=== PATIENT | male | born 1990 ===

== ENCOUNTER 2017-07-10 17:00 | Inpatient (IN) | payer BC, OTHER ==
[~2017-07-10] VITALS: Ht 172.7 cm; Wt 127.0 kg
[2017-07-10] MEDS ORDERED: NICOTINE 14 MG/24HR PATCH TD PRN (22:15)
[2017-07-10] MEDS ORDERED: MAGNESIUM HYDROXIDE 30 ML LIQUID UDC PO PRN (22:15)
[2017-07-10] MEDS ORDERED: MIRALAX 17 GM POWD.PACK PO PRN (22:15)
[2017-07-10] MEDS ORDERED: NICOTINE POLACRILEX 4 MG GUM-PK OF TEN BC PRN (22:15)
[2017-07-10] MEDS ORDERED: MAG HYDROX/AL HYDROX/SIMETH 30 ML LIQUID UDC PO PRN (22:15)
[2017-07-10] MEDS ORDERED: IBUPROFEN 600 MG TABLET PO PRN (22:15)
[2017-07-10] MEDS ORDERED: DICYCLOMINE HCL 20 MG TABLET PO PRN (22:15)
[2017-07-10] MEDS ORDERED: ONDANSETRON ODT 4 MG TAB.RAPDIS SL PRN (22:15)
[2017-07-10] MEDS ORDERED: BUPRENORPHINE HCL 2 MG TAB.SUBL SL PRN (22:15)
[2017-07-10] MEDS ORDERED: LORAZEPAM 1 MG TABLET PO PRN ×2 (22:15)
[2017-07-10] MEDS ORDERED: ACETAMINOPHEN 325 MG TABLET PO PRN (22:15)
[2017-07-10] MEDS ORDERED: LORAZEPAM 2 MG/1 ML VIAL IM PRN (22:15)
[2017-07-10] MEDS ORDERED: LOPERAMIDE HCL 2 MG CAPSULE PO PRN ×2 (22:15)
[2017-07-10] MEDS ORDERED: CLONIDINE HCL 0.1 MG TABLET PO PRN (22:15)
[2017-07-10] MEDS ORDERED: diphenhydrAMINE 50 MG CAPSULE PO PRN (22:15)
[2017-07-10] MEDS ORDERED: BUPRENORPHINE HCL 2 MG TAB.SUBL SL ONE ×2 (22:30→23:12)
[2017-07-10 22:34] LABS: *AMPHETAMINE, URINE NEGATIVE (NEGATIVE); *BARBITURATE, URINE NEGATIVE (NEGATIVE); *CANNABINOID, URINE POSITIVE (NEGATIVE); *COCCAINE, URINE NEGATIVE (NEGATIVE); *OPIATE, URINE POSITIVE (NEGATIVE); *PHENCYCLIDINE SCREEN,URINE NEGATIVE (NEGATIVE)
[2017-07-10] MEDS ORDERED: PHENOBARBITAL 60 MG TABLET PO SCH (23:00)
[2017-07-10] MEDS ORDERED: PHENOBARBITAL 60 MG TABLET ONE (23:11)
[2017-07-10] MEDS ORDERED: FOLI1TAB16 PO (23:38)
[2017-07-10] MEDS ORDERED: CLON0.1T PO (23:38)
[2017-07-10] MEDS ORDERED: QUET100T PO (23:38)
[2017-07-10] MEDS ORDERED: GABA-534 PO (23:38)
[2017-07-10] MEDS ORDERED: ONDA4TAB10 PO (23:38)
[2017-07-10] MEDS ORDERED: METH-406 PO (23:38)
[2017-07-11 04:00] VITALS: BP 95/52
[2017-07-11 08:00] VITALS: BP 106/67
[2017-07-11] MEDS ORDERED: TUBERCULIN,PURIF.PROT.DERIV. 5 TU/0.1 ML TEST ID ONE (09:00)
[2017-07-11] MEDS: PHENOBARBITAL 60 MG TABLET PO SCH ×4 (09:04→20:31)
[2017-07-11] MEDS: BUPRENORPHINE HCL 2 MG TAB.SUBL SL SCH ×4 (09:04→20:31)
[2017-07-11] MEDS: MULTIVITAMINS,THERAPEUTIC TABLET PO SCH (09:04)
[2017-07-11] MEDS: GABAPENTIN 300 MG CAPSULE PO SCH ×2 (09:04→20:31)
[2017-07-11 12:00] VITALS: BP 126/68
[2017-07-11 13:06] LABS: BASOPHILS # (AUTO) 0.1 K/uL (0.0-8.0); EOSINOPHILS # (AUTO) 0.2 K/uL (0.0-0.7); EOSINOPHILS % (AUTO) 4.2 % (0.0-7.0); HEMATOCRIT 37.5 % (36.7-47.1); LYMPHOCYTES # (AUTO) 1.6 K/uL (20.0-40.0); LYMPHOCYTES % (AUTO) 29.3 % (20.5-51.5); MEAN CORPUSCULAR HEMOGLOBIN 29.7 uug (23.8-33.4); MEAN CORPUSCULAR HGB CONC 35 g/dL (32.5-36.3); MEAN CORPUSCULAR VOLUME 85.6 fL (73.0-96.2); MONOCYTES # (AUTO) 0.7 K/uL (2.0-10.0); MONOCYTES % (AUTO) 12.1 % (0.0-11.0); NEUTROPHILS % (AUTO) 53.4 % (38.5-71.5); PLATELET COUNT (AUTO) 155 K/uL (152-348); RED BLOOD CELL COUNT(AUTO) 4.38 MIL/uL (4.06-5.63); WHITE BLOOD COUNT (AUTO) 5.6 K/uL (3.6-10.2)
[2017-07-11 13:20] LABS: ALANINE AMINOTRANSFERASE 117 U/L (16-63); ALKALINE PHOSPHATASE 71 U/L (50-136); ASPARTATE AMINOTRANSFERASE 53 U/L (15-37); BILIRUBIN,TOTAL 0.2 mg/dL (0.2-1.0); CARBON DIOXIDE 29 mmol/L (21-32); CHLORIDE 103 mmol/L (98-107); GLUCOSE 121 mg/dL (74-106); POTASSIUM 3.8 mmol/L (3.5-5.1); TOTAL PROTEIN, SERUM 6.8 g/dL (6.4-8.2); UREA NITROGEN, BLOOD 11 mg/dL (7-18)
[2017-07-11 13:23] LABS: ETHANOL < 3 MG/DL (0-0)
[2017-07-11 16:00] VITALS: BP 134/96
[2017-07-11 20:00] VITALS: BP 132/89
[2017-07-11] MEDS: QUETIAPINE FUMARATE 100 MG TABLET PO SCH (20:31)
[2017-07-11] MEDS: METHOCARBAMOL 750 MG TABLET PO PRN (20:32)
[2017-07-12] VITALS: BP 121/69
[2017-07-12 04:00] VITALS: BP 120/67
[2017-07-12 06:06] LABS: HEPATITIS B SURFACE AG Negative (Negative)
[2017-07-12 08:16] VITALS: BP 119/68
[2017-07-12] MEDS: PHENOBARBITAL 60 MG TABLET PO SCH ×3 (08:47→20:20)
[2017-07-12] MEDS: METHOCARBAMOL 750 MG TABLET PO PRN ×2 (08:47→20:20)
[2017-07-12] MEDS: BUPRENORPHINE HCL 2 MG TAB.SUBL SL SCH ×3 (08:47→20:21)
[2017-07-12] MEDS: MULTIVITAMINS,THERAPEUTIC TABLET PO SCH (08:47)
[2017-07-12] MEDS: GABAPENTIN 300 MG CAPSULE PO SCH ×3 (08:47→20:20)
[2017-07-12] MEDS ORDERED: BUPRENORPHINE HCL 2 MG TAB.SUBL SL ONE (12:30)
[2017-07-12] MEDS ORDERED: CLONIDINE HCL 0.1 MG TABLET PO ONE (12:30)
[2017-07-12] MEDS ORDERED: PHENOBARBITAL 60 MG TABLET PO ONE (12:30)
[2017-07-12 13:08] VITALS: BP 124/82
[2017-07-12 16:50] VITALS: BP 148/79
[2017-07-12 20:00] VITALS: BP 127/77
[2017-07-12] MEDS: DICYCLOMINE HCL 20 MG TABLET PO SCH (20:20)
[2017-07-12] MEDS: CLONIDINE HCL 0.1 MG TABLET PO SCH (20:20)
[2017-07-12] MEDS: BACLOFEN 10 MG TABLET PO SCH (20:23)
[2017-07-12] MEDS: QUETIAPINE FUMARATE 100 MG TABLET PO SCH (21:48)
[2017-07-13] VITALS: BP 116/60
[2017-07-13 04:00] VITALS: BP 116/61
[2017-07-13 08:00] VITALS: BP 110/66
[2017-07-13] MEDS ORDERED: BUPRENORPHINE HCL 2 MG TAB.SUBL SL SCH (09:00)
[2017-07-13] MEDS: GABAPENTIN 300 MG CAPSULE PO SCH ×2 (09:26→14:20)
[2017-07-13] MEDS: MULTIVITAMINS,THERAPEUTIC TABLET PO SCH (09:26)
[2017-07-13] MEDS: DICYCLOMINE HCL 20 MG TABLET PO SCH ×2 (09:26→21:18)
[2017-07-13] MEDS: BACLOFEN 10 MG TABLET PO SCH ×3 (09:26→21:17)
[2017-07-13] MEDS: CLONIDINE HCL 0.1 MG TABLET PO SCH ×3 (09:27→21:16)
[2017-07-13] MEDS: PHENOBARBITAL 60 MG TABLET PO SCH ×3 (09:30→16:29)
[2017-07-13 12:00] VITALS: BP 125/62
[2017-07-13] MEDS ORDERED: LORAZEPAM 1 MG TABLET PO PRN ×2 (13:15)
[2017-07-13] MEDS: BUPRENORPHINE HCL 2 MG TAB.SUBL SL SCH ×2 (14:20→21:17)
[2017-07-13 16:00] VITALS: BP 121/77
[2017-07-13] MEDS ORDERED: METHYL SALICYLATE/MENTHOL CREAM 28 GM TUBE TOP PRN (18:30)
[2017-07-13 20:00] VITALS: BP 131/72
[2017-07-13] MEDS ORDERED: GABAPENTIN 300 MG CAPSULE PO SCH (21:00)
[2017-07-13] MEDS ORDERED: PHENOBARBITAL 60 MG TABLET PO SCH (21:00)
[2017-07-13] MEDS: QUETIAPINE FUMARATE 100 MG TABLET PO SCH (21:17)
[2017-07-13] MEDS: METHOCARBAMOL 750 MG TABLET PO PRN (23:07)
[2017-07-14] VITALS: BP 114/71
[2017-07-14 08:00] VITALS: BP 107/72
[2017-07-14] MEDS: BUPRENORPHINE HCL 2 MG TAB.SUBL SL SCH ×3 (09:38→21:49)
[2017-07-14] MEDS: DICYCLOMINE HCL 20 MG TABLET PO SCH ×2 (09:38→21:49)
[2017-07-14] MEDS: BACLOFEN 10 MG TABLET PO SCH (09:38)
[2017-07-14] MEDS: GABAPENTIN 300 MG CAPSULE PO SCH ×3 (09:38→21:49)
[2017-07-14] MEDS: PHENOBARBITAL 60 MG TABLET PO SCH ×3 (09:38→21:49)
[2017-07-14] MEDS: MULTIVITAMINS,THERAPEUTIC TABLET PO SCH (09:38)
[2017-07-14] MEDS: CLONIDINE HCL 0.1 MG TABLET PO SCH ×2 (09:39→14:34)
[2017-07-14 12:00] VITALS: BP 116/89
[2017-07-14] MEDS: BACLOFEN 20 MG TABLET PO SCH ×2 (14:32→21:49)
[2017-07-14 16:00] VITALS: BP 108/61
[2017-07-14 20:00] VITALS: BP 141/83
[2017-07-14] MEDS ORDERED: CLONIDINE HCL 0.2 MG TABLET PO SCH (21:00)
[2017-07-14] MEDS ORDERED: DICYCLOMINE HCL 20 MG TABLET PO SCH (21:00)
[2017-07-14] MEDS: QUETIAPINE FUMARATE 100 MG TABLET PO SCH (21:51)
[2017-07-14] MEDS ORDERED: HYDROXYZINE PAMOATE 25 MG CAPSULE PO ONE (23:45)
[2017-07-14] MEDS: METHOCARBAMOL 750 MG TABLET PO PRN (23:53)
[2017-07-15] VITALS: BP 118/57
[2017-07-15 08:00] VITALS: BP 122/62
[2017-07-15] MEDS: MULTIVITAMINS,THERAPEUTIC TABLET PO SCH (09:19)
[2017-07-15] MEDS: DICYCLOMINE HCL 20 MG TABLET PO SCH ×2 (09:20→16:38)
[2017-07-15] MEDS: PHENOBARBITAL 60 MG TABLET PO SCH (09:20)
[2017-07-15] MEDS: GABAPENTIN 300 MG CAPSULE PO SCH ×2 (09:20→16:37)
[2017-07-15] MEDS: BACLOFEN 20 MG TABLET PO SCH ×2 (09:20→16:37)
[2017-07-15] MEDS: CLONIDINE HCL 0.1 MG TABLET PO SCH ×2 (09:21→16:37)
[2017-07-15] MEDS: BUPRENORPHINE HCL 2 MG TAB.SUBL SL SCH (09:21)
[2017-07-15 12:00] VITALS: BP 112/74
[2017-07-15] MEDS ORDERED: PHENOBARBITAL 60 MG TABLET PO ONE (13:00)
[2017-07-15] MEDS ORDERED: BUPRENORPHINE HCL 2 MG TAB.SUBL SL ONE ×2 (13:00→23:46)
[2017-07-15] MEDS: METHOCARBAMOL 750 MG TABLET PO PRN (13:54)
[2017-07-15 16:30] VITALS: BP 118/72
[2017-07-15] MEDS ORDERED: HYDROXYZINE PAMOATE 25 MG CAPSULE PO PRN (18:30)
[2017-07-15 20:10] VITALS: BP 126/71
[2017-07-15] MEDS ORDERED: PHENOBARBITAL 60 MG TABLET ONE (23:46)
[2017-07-16 00:16] VITALS: BP 148/98
[2017-07-16] MEDS: QUETIAPINE FUMARATE 100 MG TABLET PO SCH ×2 (00:22→21:47)
[2017-07-16] MEDS: GABAPENTIN 300 MG CAPSULE PO SCH ×4 (00:22→21:48)
[2017-07-16] MEDS: PHENOBARBITAL 60 MG TABLET PO SCH (00:22)
[2017-07-16] MEDS: BACLOFEN 20 MG TABLET PO SCH ×4 (00:22→21:47)
[2017-07-16] MEDS: DICYCLOMINE HCL 20 MG TABLET PO SCH ×4 (00:23→21:47)
[2017-07-16] MEDS: BUPRENORPHINE HCL 2 MG TAB.SUBL SL SCH (00:23)
[2017-07-16 04:04] VITALS: BP 140/91
[2017-07-16 08:00] VITALS: BP 104/64
[2017-07-16] MEDS ORDERED: PHENOBARBITAL 60 MG TABLET PO SCH (09:00)
[2017-07-16] MEDS ORDERED: BUPRENORPHINE HCL 2 MG TAB.SUBL SL SCH (09:00)
[2017-07-16] MEDS: MULTIVITAMINS,THERAPEUTIC TABLET PO SCH (09:45)
[2017-07-16] MEDS: CLONIDINE HCL 0.1 MG TABLET PO SCH ×2 (09:46→14:19)
[2017-07-16 12:00] VITALS: BP 137/65
[2017-07-16] MEDS: BENZOCAINE/MENTH/CETYLPYRD LOZENGE MM PRN (14:22)
[2017-07-16 16:00] VITALS: BP 127/68
[2017-07-16 20:00] VITALS: BP 133/85
[2017-07-16] MEDS ORDERED: DICY20TA28 PO (23:46)
[2017-07-16] MEDS ORDERED: IBUP-1955 PO (23:46)
[2017-07-16] MEDS ORDERED: CLON0.1T14 PO (23:46)
[2017-07-16] MEDS ORDERED: BACL20TA PO (23:46)
[2017-07-16] MEDS ORDERED: GABA-534 PO ×2 (23:46)
[2017-07-16] MEDS ORDERED: HYDR-3895 PO (23:46)
[2017-07-17] MEDS: BACLOFEN 20 MG TABLET PO SCH (08:19)
[2017-07-17] MEDS: GABAPENTIN 300 MG CAPSULE PO SCH (08:19)
[2017-07-17] MEDS: BENZOCAINE/MENTH/CETYLPYRD LOZENGE MM PRN (08:19)
[2017-07-17] MEDS: CLONIDINE HCL 0.1 MG TABLET PO SCH (08:19)
[2017-07-17] MEDS: DICYCLOMINE HCL 20 MG TABLET PO SCH (08:19)
[2017-07-17] MEDS: MULTIVITAMINS,THERAPEUTIC TABLET PO SCH (08:19)
[2017-07-17 08:48] VITALS: BP 125/78
== END 2017-07-17 09:28 | disposition other institution (70) | DRG 895 ==
LOC: SRC 20:59
PROVIDERS: ADMIT Internal Medicine; ATTEND Internal Medicine
PROC: HZ2ZZZZ Detoxification Services for Substance Abuse Treatment (ICD-10-PCS; principal; 2017-07-10)
PROC: HZ31ZZZ Individual Counseling for Substance Abuse Treatment, Behavioral (ICD-10-PCS; 2017-07-13)
PROC: HZ41ZZZ Group Counseling for Substance Abuse Treatment, Behavioral (ICD-10-PCS; 2017-07-14)
DX: F13.232 Sedative, hypnotic or anxiolytic dependence with withdrawal with perceptual disturbance (principal); I15.9 Secondary hypertension, unspecified; F12.90 Cannabis use, unspecified, uncomplicated; F17.210 Nicotine dependence, cigarettes, uncomplicated; Z81.1 Family history of alcohol abuse and dependence; Z81.8 Family history of other mental and behavioral disorders; M79.2 Neuralgia and neuritis, unspecified; T22.3 Burn of third degree of shoulder and upper limb, except wrist and hand; V49.9XXS Car occupant (driver) (passenger) injured in unspecified traffic accident, sequela; Z79.899 Other long term (current) drug therapy; Z59.1 Inadequate housing; G47.00 Insomnia, unspecified; F43.10 Post-traumatic stress disorder, unspecified; Z91.89 Other specified personal risk factors, not elsewhere classified; R73.9 Hyperglycemia, unspecified; J02.9 Acute pharyngitis, unspecified; R74.0 Nonspecific elevation of levels of transaminase and lactic acid dehydrogenase [LDH]
CPT/HCPCS: 36415; 70030-TC; 80307; 80346; 80349; 80361; 83735; 85025; 86592; 86705; 86803; 87340; 87806; A4663; G0480; J8499; Q0162

== ENCOUNTER 2017-08-12 13:03 | Inpatient (IN) | payer BC, OTHER ==
[~2017-08-12] VITALS: Ht 172.7 cm; Wt 120.2 kg
[~2017-08-12 13:03] MED LIST: BACL20TA PO; CLON0.1T PO; CLON0.1T14 PO; DICY20TA28 PO; GABA-534 PO; HYDR-3895 PO; IBUP-1955 PO; METH-406 PO; ONDA4TAB10 PO; QUET100T PO
--- NOTE | 2017-08-13 12:05 | NUR ---
Pre-admission Note: Client is seen in intake at this time. Alert and oriented x 4. Verbally responsive. Appears anxious. Redirection and reassurance provided. Educated patient on the unit's policies and procedures. Verbalized good understanding. Denies any allergies. Last seizure was on Aug 2015. Client states that he is voluntarily here to safely detox off of opiates and BZO. Will continue with the admission process when patient arrives in the unit. BP - 181/61 Pulse - 101 Temp. - 98.2 RR - 19 PL - 7/10. O2 sat at RA - 98%
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
[2017-08-13 12:19] VITALS: BP 131/81
[2017-08-13] MEDS ORDERED: MAGNESIUM HYDROXIDE 30 ML LIQUID UDC PO PRN (12:30)
[2017-08-13] MEDS ORDERED: ACETAMINOPHEN 325 MG TABLET PO PRN (12:30)
[2017-08-13] MEDS ORDERED: DOCUSATE SODIUM 250 MG CAPSULE PO PRN (12:30)
[2017-08-13] MEDS ORDERED: MAG HYDROX/AL HYDROX/SIMETH 30 ML LIQUID UDC PO PRN (12:30)
[2017-08-13] MEDS ORDERED: MIRALAX 17 GM POWD.PACK PO PRN (12:30)
[2017-08-13] MEDS ORDERED: LORAZEPAM 1 MG TABLET PO PRN ×2 (12:30)
[2017-08-13] MEDS ORDERED: LOPERAMIDE HCL 2 MG CAPSULE PO PRN ×2 (12:30)
[2017-08-13] MEDS ORDERED: ONDANSETRON ODT 4 MG TAB.RAPDIS SL PRN (12:30)
[2017-08-13] MEDS ORDERED: DICYCLOMINE HCL 20 MG TABLET PO PRN (12:30)
[2017-08-13] MEDS ORDERED: diphenhydrAMINE 50 MG CAPSULE PO PRN (12:30)
[2017-08-13] MEDS ORDERED: ONDANSETRON 4 MG/2 ML VIAL IM PRN (12:30)
[2017-08-13] MEDS ORDERED: BUPRENORPHINE HCL 2 MG TAB.SUBL SL PRN (12:30)
[2017-08-13] MEDS ORDERED: LORAZEPAM 2 MG/1 ML VIAL IM PRN (12:30)
[2017-08-13 13:03] LABS: *AMPHETAMINE, URINE NEGATIVE (NEGATIVE); *BARBITURATE, URINE NEGATIVE (NEGATIVE); *CANNABINOID, URINE POSITIVE (NEGATIVE); *COCCAINE, URINE NEGATIVE (NEGATIVE); *OPIATE, URINE POSITIVE (NEGATIVE); *PHENCYCLIDINE SCREEN,URINE NEGATIVE (NEGATIVE)
[2017-08-13] MEDS: METHOCARBAMOL 750 MG TABLET PO PRN (13:15)
[2017-08-13] MEDS: CLONIDINE HCL 0.1 MG TABLET PO PRN (13:15)
[2017-08-13] MEDS: LORAZEPAM 1 MG TABLET PO SCH ×3 (13:15→20:38)
--- NOTE | 2017-08-13 13:15 | NUR ---
Taper initiated/Clonidine/Robaxin/Bentyl PO given: COWS 14, patient noted with increased anxiety, chills, hot flashes, diaphoretic, myalgia and abdominal cramps. BP 181/91. Denies any chest pain or discomfort. Medicated patient with Clonidine, Robaxin and Bentyl as ordered. Will monitor for effectiveness
[2017-08-13] MEDS: BUPRENORPHINE HCL 2 MG TAB.SUBL SL SCH ×3 (13:16→20:40)
[2017-08-13 14:15] VITALS: BP 145/81
--- NOTE | 2017-08-13 14:15 | NUR ---
Re-assessment: Clonidine/Robaxin and Bentyl Per patient, PRN Clonidine, Robaxin and Bentyl was effective in reducing patient's blood pressure, BP 145/81, less myalgia noted, PL 4/10 and less abdominal cramps noted.
[2017-08-13] MEDS: GABAPENTIN 400 MG CAPSULE PO SCH ×2 (14:17→20:39)
[2017-08-13 15:22] LABS: BASOPHILS % (AUTO) 0.4 % (0.0-2.0); EOSINOPHILS # (AUTO) 0.1 K/uL (0.0-0.7); EOSINOPHILS % (AUTO) 0.9 % (0.0-7.0); HEMATOCRIT 38.4 % (36.7-47.1); HEMOGLOBIN 13.2 g/dL (12.5-16.3); LYMPHOCYTES # (AUTO) 1.4 K/uL (20.0-40.0); LYMPHOCYTES % (AUTO) 17.3 % (20.5-51.5); MEAN CORPUSCULAR HEMOGLOBIN 29.5 uug (23.8-33.4); MEAN CORPUSCULAR HGB CONC 34 g/dL (32.5-36.3); MONOCYTES # (AUTO) 0.4 K/uL (2.0-10.0); MONOCYTES % (AUTO) 5.2 % (0.0-11.0); NEUTROPHILS % (AUTO) 76.2 % (38.5-71.5); PLATELET COUNT (AUTO) 218 K/uL (152-348); RED BLOOD CELL COUNT(AUTO) 4.47 MIL/uL (4.06-5.63); WHITE BLOOD COUNT (AUTO) 7.9 K/uL (3.6-10.2)
[2017-08-13 15:32] LABS: ETHANOL < 3 MG/DL (0-0)
[2017-08-13 15:33] LABS: ALANINE AMINOTRANSFERASE 60 U/L (16-63); ALKALINE PHOSPHATASE 77 U/L (50-136); ASPARTATE AMINOTRANSFERASE 28 U/L (15-37); BILIRUBIN,TOTAL 0.3 mg/dL (0.2-1.0); CARBON DIOXIDE 27 mmol/L (21-32); CHLORIDE 105 mmol/L (98-107); CREATININE 1.1 mg/dL (0.6-1.3); GLUCOSE 152 mg/dL (74-106); MAGNESIUM 2.1 mg/dL (1.8-2.4); POTASSIUM 4.1 mmol/L (3.5-5.1); TOTAL PROTEIN, SERUM 7.7 g/dL (6.4-8.2); UREA NITROGEN, BLOOD 15 mg/dL (7-18)
[2017-08-13 16:00] VITALS: BP 121/83
--- NOTE | 2017-08-13 18:50 | NUR ---
End of Shift Notes: Patient initiated his 5-day Ativan and 5-day Subutex taper as ordered today at 1300. No adverse reactions noted. VS monitored closely. No significant abnormalities noted. Withdrawal symptoms were closely monitored. Initial COWS 14/CIWA 7. Medicated patient with Clonidine 0.1mg PO, Robaxin 750 mg PO and Bentyl 20 mg PO as ordered at 1315 with help after 1 hour. Per patient, Ativan and Subutex has been effective in reducing patient's withdrawal symptoms. Denies S/I or H/i. No AV hallucinations noted. Last COWS 9/CIWA 5. Unable to participate in group and activities due to his withdrawal symptoms. All needs met and attended. Will continue to monitor closely.
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
[2017-08-13 20:35] VITALS: BP 124/73
[2017-08-13] MEDS: QUETIAPINE FUMARATE 25 MG TABLET PO PRN (21:33)
--- NOTE | 2017-08-13 21:35 | NUR ---
PRN Medication Administration Patient is verbalizing inability of falling asleep. PRN Seroquel administered as per order. Will continue to monitor.
--- NOTE | 2017-08-13 22:30 | NUR ---
PRN Medication Reassessment Patient is noted in bed sleeping. Breathing even and non labored. Patient was given PRN Seroquel with medication noted to be effective. Patient continues to sleep well with no complications noted. No restlessness or discomfort noted. No facial grimacing noted. Will continue to monitor.
[2017-08-14 00:20] VITALS: BP 106/64
[2017-08-14 04:45] VITALS: BP 154/103
[2017-08-14] MEDS: METHOCARBAMOL 750 MG TABLET PO PRN (05:15)
[2017-08-14] MEDS: CLONIDINE HCL 0.1 MG TABLET PO PRN (05:15)
--- NOTE | 2017-08-14 05:16 | NUR ---
PRN Medication Administration Patient noted verbalizing increased pain due to lower back muscle spasms, increased anxiety, restlessness and inability of falling asleep. PRN Robaxin and Clonidine administered as per order. Will continue to monitor.
[2017-08-14 06:06] LABS: HEPATITIS B SURFACE AG Negative (Negative)
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
[2017-08-14 08:00] VITALS: BP 105/60
--- NOTE | 2017-08-14 08:00 | NUR ---
Start of Shift Notes: Received patient in his room. Alert and verbally responsive. Oriented x 4. Patient states he feels anxious and "feeling like crap." Respirations even and unlabored. No SOB noted. Abdomen soft and non-distended. BS (+) in all 4 quadrants. No complains of N/V/D or constipation noted. Bladder non-distended. Voids independently. Ambulatory ad beth with steady gait. Patient is a 26 year old male admitted for opiate and BZO dependence who was placed on a 5-day Ativan and 5-day Subutex taper as ordered. No adverse reactions noted. Prior to admission, patient was using 4-6 mg of Xanax, 2-3 grams of IV Heroin, 1 gram of Marijuana and intermittent methamphetamine. Has past medical hx of PTSD, anxiety, left shoulder skin graft, and seizure r/t withdrawals. NKA. FULL CODE. Regular diet. On fall and seizure precautions. Educated patient on the current plan of care for the day and his medication regimen. Encouraged oral fluid intake and encouraged group participation to learn new skills to prevent relapse. Will continue to monitor closely.
[2017-08-14] MEDS: IBUPROFEN 600 MG TABLET PO PRN (08:52)
[2017-08-14] MEDS: GABAPENTIN 400 MG CAPSULE PO SCH ×3 (08:52→20:31)
--- NOTE | 2017-08-14 08:52 | NUR ---
Motrin 600 mg PO given: Patient complained of 5/10 headache. Medicated patient with Motrin 600 mg PO as ordered. Will monitor for effectiveness.
[2017-08-14] MEDS ORDERED: TUBERCULIN,PURIF.PROT.DERIV. 5 TU/0.1 ML TEST ID ONE (09:00)
[2017-08-14] MEDS ORDERED: LORAZEPAM 1 MG TABLET PO SCH (09:00)
[2017-08-14] MEDS ORDERED: BUPRENORPHINE HCL 2 MG TAB.SUBL SL SCH (09:00)
--- NOTE | 2017-08-14 09:52 | NUR ---
Re-assessment: Motrin Per patient, PRN Motrin was effective in reducing headache. PL 2
--- NOTE | 2017-08-14 10:34 | NUR ---
TB test not administered: Patient refused TB test at this time. Educated patient on the risk and benefits but patient still refused. Notified MD. Will continue to monitor.
[2017-08-14 12:00] VITALS: BP 123/78
--- NOTE | 2017-08-14 12:28 | NUR ---
THerapist prompted client to attend group, client agreed to attend.
--- NOTE | 2017-08-14 12:35 | NUR ---
Therapist prompted client to attend group. Client agreed to attend.
[2017-08-14] MEDS: BUPRENORPHINE HCL 2 MG TAB.SUBL SL SCH ×3 (14:01→20:31)
[2017-08-14] MEDS: LORAZEPAM 1 MG TABLET PO SCH ×3 (14:01→20:31)
[2017-08-14 16:00] VITALS: BP 138/94
--- NOTE | 2017-08-14 18:59 | NUR ---
End of Shift Notes: Patient's taper was modified by MD Lewis today. He is tolerating the taper well. No adverse reactions noted. VS monitored closely. No significant abnormalities noted. Withdrawal symptoms were closely monitored. Initial COWS 11/CIWA 10, patient presented with anxiety/agitation, myalgia, stomach cramps, chills, hot flashes, sweating, facial flushing, and tremors. Medicated patient with Ibuprofen 600 mg PO as ordered for headache with help after 1 hour. Last COWS /CIWA 7. Denies S/I or H/I. No AV hallucinations noted. Unable to participate in group and activities due to his withdrawal symptoms. All needs met and attended. Will continue to monitor closely.
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
[2017-08-14 20:27] VITALS: BP 151/94
[2017-08-14] MEDS: QUETIAPINE FUMARATE 25 MG TABLET PO PRN (20:32)
--- NOTE | 2017-08-14 20:35 | NUR ---
PRN Medication Administration Patient verbalizing inability of falling asleep. PRN Seroquel administered. Will continue to monitor.
--- NOTE | 2017-08-14 21:30 | NUR ---
PRN Medication Reassessment Patient is noted in bed sleeping. Breathing even and non labored. No signs of pain or discomfort noted. Patient was given PRN Seroquel with medication noted to be effective. Patient continues to sleep with no interruptions noted. Will continue to monitor.
[2017-08-15 00:10] VITALS: BP 126/78
[2017-08-15 04:10] VITALS: BP 122/73
--- NOTE | 2017-08-15 07:06 | NUR ---
End of Shift Patient is in bed sleeping. Breathing even and non labored. No facial grimacing or discomfort noted. Patient is a 26 year old male admitted today 08/13/17 for Opiate and Benzo Dependence and continues on a modified Ativan and Subutex taper. Patient received a PRN Seroquel for sleep with medication noted to be effective. Patient noted to sleep a total of 6 hours. Last noted COWS 9 and CIWA 12. Patient is compliant with medications and is tolerating plan of care well. All needs attended to promptly. Will endorse to continue plan of care as ordered.
--- NOTE | 2017-08-15 07:10 | NUR ---
Start Of Shift Patient Received. Patient is a 26 year old male admitted today 08/13/17 for Opiate and Benzo Dependence. Pt is currently receiving a modified Ativan and Subutex taper, Pt reports No known allergies, is Full Code and on a Regular Diet, placed on fall and seizure precautions. Past medical history PTSD, Anxiety, Left shoulder Skin graft, History of seizures due to withdrawal (08/2015). Per endorsement, Patient was given PRN Seroquel which was noted to be effective. Last noted COWS 12 and CIWA 9. Pt encouraged to drink more fluids to help facilitate with the detox process. Pt slept a total of 6 hours last night, all safety precautions in place call light within reach bed in lowest locked position will continue to monitor and provide care.
[2017-08-15 08:00] VITALS: BP 122/75
[2017-08-15] MEDS: LORAZEPAM 1 MG TABLET PO SCH ×3 (08:59→21:33)
[2017-08-15] MEDS: BUPRENORPHINE HCL 2 MG TAB.SUBL SL SCH ×3 (08:59→21:33)
[2017-08-15] MEDS ORDERED: LORAZEPAM 1 MG TABLET PO SCH (09:00)
[2017-08-15] MEDS ORDERED: BUPRENORPHINE HCL 2 MG TAB.SUBL SL SCH ×2 (09:00→15:00)
[2017-08-15] MEDS: GABAPENTIN 400 MG CAPSULE PO SCH ×3 (09:01→21:33)
[2017-08-15 12:00] VITALS: BP 126/80
[2017-08-15] MEDS ORDERED: BUPRENORPHINE HCL 2 MG TAB.SUBL SL ONE (12:45)
[2017-08-15] MEDS ORDERED: LORAZEPAM 1 MG TABLET PO ONE (12:45)
[2017-08-15 16:00] VITALS: BP 120/78
--- NOTE | 2017-08-15 18:52 | NUR ---
End Of Shift Report given to warehouse shift supervisor nurse. Patient is a 26 year old male admitted today 08/13/17 for Opiate and Benzo Dependence. Pt is currently receiving a modified Ativan and Subutex taper, Pt reports No known allergies, is Full Code and on a Regular Diet, placed on fall and seizure precautions. Pts VS monitored closely q 4 hours. Withdrawal symptoms were closely monitored. Initial COWS 9 CIWA 12. Patient encouraged adequate PO fluid intake as tolerated. Patient presented with tremors and anxiety during the day. Last COWS 7 CIWA 6. Per patient, Subutex and Ativan have been helping him with his withdrawal symptoms. Pt ate all of his meals. Pt received onetime orders of Ativan 2mg and Subutex 4mg No PRN medications were given, Pt is in stable condition. Pt encouraged to drink more fluids to help facilitate with detox process. Patient encouraged to attend group therapies/sessions to learn new coping skills to recent relapse, patient denies SI/HI. Participated in group and therapy sessions. All needs met and attended
--- NOTE | 2017-08-15 19:05 | NUR ---
Start of shift note Received report from day shift nurse. Pt is a 26 yo male, A+Ox4, presenting to [facility] for Benzo/Opiate/Meth dependence. Pt has NKA, is on Full code status, and on Regular diet. Pt is on Fall and Seizure precautions. Pt has HX of PTSD, Anxiety, Left shoulder skin graft, and Seizure. Pt is on 5 day Subutex and 5 day Ativan tapers, tolerated well. No s/s of distress noted at this time. Respirations even and unlabored. Will continue to monitor.
[2017-08-15 20:20] VITALS: BP 146/78
[2017-08-15] MEDS: QUETIAPINE FUMARATE 25 MG TABLET PO PRN (21:38)
--- NOTE | 2017-08-15 21:38 | NUR ---
PRN Seroquel Pt c/o inability to sleep and requested for PRN Seroquel. Medication given and tolerated well. Will reassess within 1 HR. Will continue to monitor.
--- NOTE | 2017-08-15 22:35 | NUR ---
PRN Seroquel Reassessment Medication effective. Pt is resting well in bed. No s/s of distress noted at this time. Respirations even and unlabored. Will continue to monitor.
--- NOTE | 2017-08-16 00:30 | NUR ---
Tachycardia/MD Communication: Patient noted with tachycardia, HR ranging 125-138 bpm for the last four hours. MD made aware with NNO at this time. Will continue to monitor.
[2017-08-16 00:41] VITALS: BP 126/82
[2017-08-16 04:51] VITALS: BP 109/56
--- NOTE | 2017-08-16 07:00 | NUR ---
End of shift note Pt is a 26 yo male, A+Ox4, presenting to [facility] for Benzo/Opiate/Meth dependence. Pt has NKA, is on Full code status, and on Regular diet. Pt is on Fall and Seizure precautions. Pt has HX of PTSD, Anxiety, Left shoulder skin graft, and Seizure. Pt is on 5 day Subutex and 5 day Ativan tapers, tolerated well. Pt was given PRN Seroquel @2138. Pt slept for a total of 5 HRS. Last COWS: 4 and Last CIWA: 3 @0400. No s/s of distress noted at this time. Respirations even and unlabored. Will endorse to day shift nurse.
[2017-08-16 08:00] VITALS: BP 120/61
[2017-08-16] MEDS: GABAPENTIN 400 MG CAPSULE PO SCH ×3 (08:38→21:17)
[2017-08-16] MEDS ORDERED: BUPRENORPHINE HCL 2 MG TAB.SUBL SL SCH ×2 (09:00)
[2017-08-16] MEDS ORDERED: LORAZEPAM 1 MG TABLET PO SCH ×2 (09:00)
[2017-08-16 12:00] VITALS: BP 135/83
[2017-08-16] MEDS: BUPRENORPHINE HCL 2 MG TAB.SUBL SL SCH ×3 (12:13→21:18)
[2017-08-16] MEDS: PHENOBARBITAL 60 MG TABLET PO SCH ×3 (12:13→21:18)
[2017-08-16 12:45] LABS: BASOPHILS % (AUTO) 0.4 % (0.0-2.0); EOSINOPHILS # (AUTO) 0.2 K/uL (0.0-0.7); EOSINOPHILS % (AUTO) 1.6 % (0.0-7.0); HEMATOCRIT 40.1 % (36.7-47.1); HEMOGLOBIN 13.8 g/dL (12.5-16.3); LYMPHOCYTES # (AUTO) 2.3 K/uL (20.0-40.0); LYMPHOCYTES % (AUTO) 20.9 % (20.5-51.5); MEAN CORPUSCULAR HEMOGLOBIN 29.6 uug (23.8-33.4); MEAN CORPUSCULAR HGB CONC 34 g/dL (32.5-36.3); MEAN CORPUSCULAR VOLUME 86.1 fL (73.0-96.2); MONOCYTES # (AUTO) 0.9 K/uL (2.0-10.0); MONOCYTES % (AUTO) 8.1 % (0.0-11.0); NEUTROPHILS # (AUTO) 7.6 K/uL (1.8-8.9); PLATELET COUNT (AUTO) 215 K/uL (152-348); RED BLOOD CELL COUNT(AUTO) 4.66 MIL/uL (4.06-5.63); WHITE BLOOD COUNT (AUTO) 10.9 K/uL (3.6-10.2)
[2017-08-16 12:53] LABS: MAGNESIUM 1.9 mg/dL (1.8-2.4); POTASSIUM 4.1 mmol/L (3.5-5.1)
[2017-08-16] MEDS ORDERED: OSELTAMIVIR PHOSPHATE 75 MG CAPSULE PO ONE (13:00)
--- NOTE | 2017-08-16 13:00 | NUR ---
New orders: Patient with orders for labs, strep throat culture, blood culture, and CXR due to URI symptoms.
[2017-08-16 16:00] VITALS: BP 126/81
--- NOTE | 2017-08-16 18:00 | NUR ---
New orders: Patient was placed on droplet precaution at this time due to possible influenza. Patient education provided.
--- NOTE | 2017-08-16 18:56 | NUR ---
End of Shift Notes: Patient continues to be on a modified 5-day Subutex and Ativan taper switched to Phenobarbital taper. He is tolerating the taper well. No adverse reactions noted. VS monitored closely. No significant abnormalities noted. Withdrawal symptoms were closely monitored. Initial COWS 5/CIWA 4, patient presented with anxiety, fine tremors, mild sweats. Last COWS 7/CIWA 6. Denies S/I or H/I. No AV hallucinations noted. Unable to participate in group and activities due to his withdrawal symptoms. Patient noted with URI symptoms. MD aware. Labs/CXR/Strep swab and influenza swab done as ordered. Results received. On Tamiflu and droplet precaution as ordered. All needs met and attended. Will continue to monitor closely.
--- NOTE | 2017-08-16 19:15 | NUR ---
START OF SHIFT NOTE : Pt. is 26 years old , admitted on 08/13/2017 for safely detox off of BZO and opiates. Pt. placed on a 5-day Subutex and modified Phenobarbital taper as ordered. No adverse reactions noted. NKA. FULL CODE. Regular diet. On fall and seizure precautions. He is alert and verbally responsive. Oriented x 4. Patient complains of increased level of anxiety , mild body ache. Respirations even and unlabored. No SOB noted. Abdomen soft and non-distended. BS (+) in all 4 quadrants. No complains of N/V/D or constipation noted. Bladder non-distended. Voids independently. Ambulatory ad beth with steady gait. Safety measures in place, call light within reach, side rails up x2, bed locked and in low position. Will continue to monitor.
[2017-08-16 20:00] VITALS: BP 139/87
[2017-08-16] MEDS: OSELTAMIVIR PHOSPHATE 75 MG CAPSULE PO SCH (21:17)
--- NOTE | 2017-08-16 23:00 | NUR ---
PRN SEROQUEL Pt. complains of sleeplessness. PRN SEROQUEL given as ordered. Safety measures in place : bed on lowest position with side rails x2 up for safety, call light within reach. Will continue to monitor closely and offer help.
[2017-08-16] MEDS: QUETIAPINE FUMARATE 25 MG TABLET PO PRN (23:21)
--- NOTE | 2017-08-17 | NUR ---
RE-ASSESSMENT SEROQUEL Pt. is sleeping, RR=16 unlabored and even. Safety measures in place : bed on lowest position with side rails x2 up for safety, call light within reach. Will continue to monitor closely and offer help.
--- NOTE | 2017-08-17 06:37 | NUR ---
END OF SHIFT NOTE : Pt. is 26 years old , admitted on 08/13/2017 for safely detox off of BZO and opiates. Pt. placed on a 5-day Subutex and modified Phenobarbital taper as ordered. No adverse reactions noted. NKA. FULL CODE. Regular diet. On fall and seizure precautions. He is alert and verbally responsive. Pt remains compliant with the treatment plan. PRN SEROQUEL given during my shift. V/S remain WNL. RR=16, even and unlabored, lungs clear upon auscultation, abdomen soft and non- distended. Pt denies nausea, vomiting and diarrhea. CIWA and COWS taken when pt. was alert during the night, LAST CIWA=4 ,COWS=4 at 0400 , INTAKE= 2100 ml, voided x3 , slept 4 hours. Safety measures in place : bed on lowest position with side rails x2 up for safety, call light within reach. Will continue to monitor closely and offer help.
[2017-08-17 08:00] VITALS: BP 115/66
--- NOTE | 2017-08-17 08:10 | NUR ---
START OF SHIFT NOTE Received report from night nurse, 26 year old male admitted for Opiate and Benzo Dependence. Patient cont with modified Ativan and Subutex taper tolerating well. Per endorsement pt received PRN Seroquel effective per night nurse, last CIWA-4, COWS,4, slept for 4 hours. Patient received awake, alert and oriented x4. Patient was educated regarding plan of care for the day and medication regimen. Safety measures in place. call light with in reach. Will continue to monitor.
[2017-08-17] MEDS ORDERED: BUPRENORPHINE HCL 2 MG TAB.SUBL SL SCH (09:00)
[2017-08-17] MEDS: OSELTAMIVIR PHOSPHATE 75 MG CAPSULE PO SCH ×2 (09:00→21:10)
[2017-08-17] MEDS ORDERED: LORAZEPAM 1 MG TABLET PO SCH ×2 (09:00)
--- NOTE | 2017-08-17 09:00 | NUR ---
REFUSED MED Patient refused his scheduled Tamiflu offered x3 risk and benefits explained, pt still refused. notified.
[2017-08-17] MEDS: GABAPENTIN 400 MG CAPSULE PO SCH ×3 (09:40→21:10)
[2017-08-17] MEDS: PHENOBARBITAL 60 MG TABLET PO SCH ×3 (09:40→21:10)
[2017-08-17] MEDS: BUPRENORPHINE HCL 2 MG TAB.SUBL SL SCH ×3 (09:41→21:10)
[2017-08-17 12:00] VITALS: BP 114/68
[2017-08-17] MEDS ORDERED: LORAZEPAM 1 MG TABLET PO ONE (12:15)
[2017-08-17] MEDS ORDERED: BUPRENORPHINE HCL 2 MG TAB.SUBL SL ONE (12:15)
--- NOTE | 2017-08-17 12:46 | NUR ---
ONE TIME SUBUTEX AND ATIVAN ORDER Patient appears anxious, agitated, walking back and forth in his room and pt repotes mild nausea, chills, sweats, light headed. Patient was seen by MD with new one time order of Ativan 2mg PO and Subutex 4mg SL, CIWA/COWS score noted 8,
--- NOTE | 2017-08-17 13:06 | NUR ---
SUBUTEX REASSESSMENT COWS score noted-4, patient states one time Subutex was effective in reducing patient 's withdrawal symptoms.
[2017-08-17] MEDS ORDERED: NICOTINE 14 MG/24HR PATCH TD PRN (13:15)
[2017-08-17] MEDS: NICOTINE POLACRILEX 4 MG GUM-PK OF TEN BC PRN ×3 (13:26→21:40)
--- NOTE | 2017-08-17 13:26 | NUR ---
PRN NICOTINE GUM Patient reports nicotine craving PRN Nicotine gum 4mg given as ordered. Will cont to monitor and reassess.
--- NOTE | 2017-08-17 13:46 | NUR ---
ATIVAN REASSESSMENT COWS score noted-4, patient states one time Subutex was effective in reducing patient 's withdrawal symptoms Addendum: 08/17/17 at 1903 by LYDIA GUADALUPE LVN ZECHARIAH score noted 4, patient states one time Ativan was effective in reducing his withdrawal symptoms.
--- NOTE | 2017-08-17 14:26 | NUR ---
NICOTINE GUM REASSESSMENT Patient states Nicotine gum was effective in alleviating nicotine craving.
[2017-08-17 16:00] VITALS: BP 122/81
[2017-08-17] MEDS: HYDROXYZINE PAMOATE 25 MG CAPSULE PO PRN (16:01)
--- NOTE | 2017-08-17 16:02 | NUR ---
PRN NICOTINE GUM/VISTARIL Patient reports nicotine craving and anxiety, agitation PRN Nicotine gum 4mg/Vistaril 25mg Po given as ordered. Will cont to monitor and reassess.
--- NOTE | 2017-08-17 17:02 | NUR ---
NICOTINE GUM/VISTARIL REASSESSMENT Patient states Nicotine gum was effective in alleviating nicotine craving and Vistaril was effective in reducing his anxiety and agitation. .
--- NOTE | 2017-08-17 19:03 | NUR ---
END OF SHIFT NOTE Patient cont with Ativan taper tolerated well. Patient received PRN Toradol IM noted to be effective. Patient did not attend any groups and activities, stayed in his room most of the day. Educated pt to attend groups and activities to learn new coping skills with good verbal understanding. Patient seen by psychiatrist with new order of Celexa and Wellbutrin medication given as ordered tolerated well. Vital signs WNL. Last CIWA score was 5 @1600. Safety measures in place. Patient endorsed to night nurse in stable condition. Addendum: 08/17/17 at 1925 by LYDIA GUADALUPE LVN ERROR IN CHARTING WRONG PT.
--- NOTE | 2017-08-17 19:15 | NUR ---
START OF SHIFT NOTE : Pt. is 26 years old , admitted on 08/13/2017 for safely detox off of BZO and opiates. Pt. placed on a 5-day Subutex and modified Phenobarbital taper as ordered. No adverse reactions noted. NKA. FULL CODE. Regular diet. On fall and seizure precautions. He is alert and verbally responsive. Pt. is on Room Restriction, Isolation precautions, is watching TV, complains of increased level of anxiety and sleeplessness. Safety measures in place : bed on lowest position with side rails x2 up for safety, call light within reach. Will continue to monitor closely and offer help.
--- NOTE | 2017-08-17 19:25 | NUR ---
END OF SHIFT NOTE Patient cont on modify Phenobarbital/5 days Subutex taper tolerating well. Patient received PRN medications for anxiety and one time dose noted to be effective. Patient cont with isolation. patient complaint with treatment and medications Vital signs WNL. Last CIWA score noted 3 and COWS score noted 3 at 1600. All safety measures in place. Patient endorse to night nurse in stable condition.
[2017-08-17 20:00] VITALS: BP 102/65
--- NOTE | 2017-08-17 21:00 | NUR ---
PRN NICOTINE GUM Patient reports nicotine craving PRN Nicotine gum 4mg given as ordered. Will cont to monitor and reassess.
[2017-08-17] MEDS: QUETIAPINE FUMARATE 25 MG TABLET PO PRN (21:10)
--- NOTE | 2017-08-17 22:00 | NUR ---
NICOTINE GUM REASSESSMENT Patient states Nicotine gum was effective in alleviating nicotine craving.
--- NOTE | 2017-08-18 06:56 | NUR ---
END OF SHIFT NOTE : Pt. is 26 years old , admitted on 08/13/2017 for safely detox off of BZO and opiates. Pt. placed on a 5-day Subutex and modified Phenobarbital taper as ordered. No adverse reactions noted. NKA. FULL CODE. Regular diet. On fall and seizure precautions. He is alert and verbally responsive. Pt remains compliant with the treatment plan. PRN SEROQUEL given during my shift. V/S remain WNL. RR=16, even and unlabored, lungs clear upon auscultation, abdomen soft and non- distended. Pt denies nausea, vomiting and diarrhea. CIWA and COWS taken when pt. was alert during the night, LAST CIWA=3 ,COWS=3 at 0400 , INTAKE= 1296 ml, voided x2 , slept 6 hours. Safety measures in place : bed on lowest position with side rails x2 up for safety, call light within reach. Will continue to monitor closely and offer help.
--- NOTE | 2017-08-18 07:45 | NUR ---
START OF SHIFT RECEIVED PT A/O X4, RESPIRATIONS EVEN AND UNLABORED. PT HAS A FLAT AFFECT. PT REMAINS ON ISOLATION. PT REPORTS HAVING MILD NAUSEA, HEADACHE, SWEATING AND ANXIETY. MILD TREMORS FELT AND PT SEEMS AGITATED. ENCOURAGED PT TO CONSUME MORE FLUIDS TO PROMOTE DETOX PROCESS. SIDE RAILS UP X2, BED IN LOWEST POSITION. CALL LIGHT WITHIN REACH. SZ AND FALL PRECAUTIONS TAKEN. WILL CONTINUE TO MONITOR AND PROVIDE SUPPORT.
--- NOTE | 2017-08-18 07:45 | NUR ---
START OF SHIFT RECEIVED PT A/O X4, RESPIRATIONS EVEN AND UNLABORED. PT HAS A FLAT AFFECT, HE STATES HE IS WONDERING HOW L Addendum: 08/18/17 at 0930 by MATY SETH RN WRONG PT DATA
[2017-08-18 08:00] VITALS: BP 132/68
[2017-08-18] MEDS ORDERED: LORAZEPAM 1 MG TABLET PO SCH (09:00)
[2017-08-18] MEDS: NICOTINE POLACRILEX 4 MG GUM-PK OF TEN BC PRN ×3 (09:03→21:32)
[2017-08-18] MEDS: GABAPENTIN 400 MG CAPSULE PO SCH ×3 (09:03→21:33)
--- NOTE | 2017-08-18 09:03 | NUR ---
PRN PT C/O NICOTINE CRAVINGS AND NICOTINE GUM WAS GIVEN AT 0903. WILL CONTINUE TO MONITOR.
[2017-08-18] MEDS: BUPRENORPHINE HCL 2 MG TAB.SUBL SL SCH ×2 (09:04→21:33)
[2017-08-18] MEDS: PHENOBARBITAL 60 MG TABLET PO SCH ×3 (09:04→21:32)
--- NOTE | 2017-08-18 10:00 | NUR ---
REASSESSMENT PT VERBALIZED THE NICOTINE GUM WAS EFFECTIVE IN ALLEVIATING IN NICOTINE CRAVINGS.
[2017-08-18] MEDS: OSELTAMIVIR PHOSPHATE 75 MG CAPSULE PO SCH ×2 (10:04→21:33)
--- NOTE | 2017-08-18 10:45 | NUR ---
RESPIRATORY NASAL SWABS RECEIVED FROM LAB AND SPECIMEN SENT TO LAB FOR RESPIRATORY VIRUS PANEL.
[2017-08-18] MEDS: IBUPROFEN 600 MG TABLET PO PRN ×2 (10:56→18:05)
[2017-08-18] MEDS: METHOCARBAMOL 750 MG TABLET PO PRN (10:59)
[2017-08-18] MEDS: HYDROXYZINE PAMOATE 25 MG CAPSULE PO PRN (10:59)
--- NOTE | 2017-08-18 11:03 | NUR ---
PRN PT C/O HEADACHE, GENERALIZED BODY ACHES, ANXIETY AND NICOTINE CRAVINGS. ROBAXIN 750 MG PO PRN, VISARIL 25 MG PO PRN, MOTRIN 600 MG PO PRN, AND NICOTINE GUM WAS GIVEN. WILL CONTINUE TO MONITOR.
[2017-08-18 12:00] VITALS: BP 145/89
--- NOTE | 2017-08-18 12:03 | NUR ---
REASSESSMENT PT REPORTED MEDICATION WAS EFFECTIVE FOR HEADACHE, BODY ACHES AND ANXIETY BUT PT APPEARS TO BE AGITATED. PT STATES, "I FEEL TRAPPED INSIDE THIS ROOM, I NEED FRESH AIR. I FEEL CLAUSTROPHOBIC." PT HAVE BEEN RE-EDUCATED ON THE RATIONALE AND PURPOSE OF DROPLET ISOLATION. REINFORCEMENT NEEDED. PT STATED NICOTINE GUM WAS EFFECTIVE. WILL CONTINUE TO MONITOR AND PROVIDE SUPPORT.
[2017-08-18] MEDS ORDERED: OSELTAMIVIR PHOSPHATE 75 MG CAPSULE PO SCH (13:00)
[2017-08-18 16:00] VITALS: BP 142/85
--- NOTE | 2017-08-18 17:05 | NUR ---
CONSULT FOR DR. RUSHING IS PLACED AND AWAITING FOR FURTHER ASSESSMENT ON CONTINUANCE OF DROPLET PRECAUTIONS.
[2017-08-18] MEDS: CLONIDINE HCL 0.1 MG TABLET PO PRN (17:56)
--- NOTE | 2017-08-18 18:05 | NUR ---
PRN PT APPEARED TO BE ANGRY AND AGITATED. HE REQUESTED TO HAVE MEDICATION FOR ANXIETY AND HEADACHE. CLONIDINE 0.1 MG PO PRN AND MOTRIN 600 MG PO PRN WAS GIVEN. WILL CONTINUE TO MONITOR.
--- NOTE | 2017-08-18 19:05 | NUR ---
REASSESSMENT PT APPEARS TO BE LESS AGITATED UPON REASSESSMENT. WILL CONTINUE TO MONITOR.
--- NOTE | 2017-08-18 19:15 | NUR ---
START OF SHIFT NOTE : Pt. is 26 years old , admitted on 08/13/2017 for safely detox off of BZO and opiates. Pt. placed on a 5-day Subutex and modified Phenobarbital taper as ordered. No adverse reactions noted. NKA. FULL CODE. Regular diet. On fall and seizure precautions. He is alert and verbally responsive. Pt. is on Room Restriction, Isolation precautions, is watching TV, complains of mild headache, increased level of anxiety and sleeplessness. Safety measures in place : bed on lowest position with side rails x2 up for safety, call light within reach. Will continue to monitor closely and offer help.
--- NOTE | 2017-08-18 19:28 | NUR ---
END OF SHIFT PT IS A/O X4, RESPIRATIONS EVEN AND UNLABORED. PT APPEARS TO BE ANGRY, AGITATED AND RESTLESS; STATES HE IS VERY UPSET AND LOSING PATIENCE BEING ON ISOLATION. EDUCATED PT ON THE RATIONALE TO DROPLET ISOLATION PRECAUTION. REINFORCEMENT NEEDED. CONSULT WITH DR. RUSHING HAS BEEN PLACED AND AWAITING FOR FURTHER ASSESSMENT. PT REPORTS HAVING MILD NAUSEA, HEADACHE, SWEATING AND ANXIETY. PT REPORTS NO FLU-LIKE SYMPTOMS. MILD TREMORS ARE FELT. LAST COWS 7 AND CIWA 6. ENCOURAGED PT TO CONSUME MORE FLUIDS TO PROMOTE DETOX PROCESS. SIDE RAILS UP X2, BED IN LOWEST POSITION. CALL LIGHT WITHIN REACH. SZ AND FALL PRECAUTIONS TAKEN. WILL GIVE ALL ENDORSEMENT AND PERTINENT DATA TO REPA[employer]ER [employer] NURSE.
[2017-08-18 20:00] VITALS: BP 132/88
--- NOTE | 2017-08-18 21:00 | NUR ---
PRN NICOTINE GUM Patient reports nicotine craving . PRN Nicotine gum 4mg given as ordered. Will cont to monitor and reassess.
[2017-08-18] MEDS: QUETIAPINE FUMARATE 25 MG TABLET PO PRN (21:33)
[2017-08-18] MEDS: CLONIDINE HCL 0.1 MG TABLET PO SCH (21:34)
--- NOTE | 2017-08-18 21:50 | NUR ---
NICOTINE GUM REASSESSMENT Patient states Nicotine gum was effective in alleviating nicotine craving.
--- NOTE | 2017-08-19 06:52 | NUR ---
END OF SHIFT NOTE : Pt. is 26 years old , admitted on 08/13/2017 for safely detox off of BZO and opiates. Pt. placed on a 5-day Subutex and modified Phenobarbital taper as ordered. No adverse reactions noted. NKA. FULL CODE. Regular diet. On fall and seizure precautions. He is alert and verbally responsive. Pt remains compliant with the treatment plan. PRN SEROQUEL, Nicotine Gum given during my shift. V/S remain WNL. RR=16, even and unlabored, lungs clear upon auscultation, abdomen soft and non- distended. Pt denies nausea, vomiting and diarrhea. CIWA and COWS taken when pt. was alert during the night, LAST CIWA=5 ,COWS=5 at 0400 , INTAKE= 1712 ml, voided x2 , slept 7 hours. Safety measures in place : bed on lowest position with side rails x2 up for safety, call light within reach. Will continue to monitor closely and offer help.
[2017-08-19 08:00] VITALS: BP 90/60
--- NOTE | 2017-08-19 08:20 | NUR ---
START OF SHIFT: RECEIVED PT A/O X 4. HE PRESENTS WITH BLUNTED AFFECT AND DEPRESSED MOOD. HE STATES HE IS AGITATED THAT HE IS RESTRICTED TO ROOM FOR DROPLET PRECAUTIONS. COWS 4 CIWA 7. HE C/O H/A 2/10 ON PAIN SCALE. HE REPORTS BODY ACHES, CHILLS,RESTLESSNESS AND ANXIETY. PRN MOTRIN GIVEN FOR H/A AND BODY ACHES. WILL MONITOR EFFECTIVENESS OF PRN MEDS. ENCOURAGED IONCREASED FLUIDS AND REST. WILL CONTINUE TO MONITOR AND OFFER SUPPORT.
[2017-08-19] MEDS ORDERED: BUPRENORPHINE HCL 2 MG TAB.SUBL SL SCH (09:00)
[2017-08-19] MEDS: OSELTAMIVIR PHOSPHATE 75 MG CAPSULE PO SCH ×2 (09:00→20:34)
[2017-08-19] MEDS ORDERED: PHENOBARBITAL 60 MG TABLET PO SCH (09:00)
[2017-08-19] MEDS: CLONIDINE HCL 0.1 MG TABLET PO SCH ×2 (09:00→20:34)
[2017-08-19] MEDS ORDERED: LORAZEPAM 1 MG TABLET PO SCH (09:00)
[2017-08-19] MEDS: GABAPENTIN 400 MG CAPSULE PO SCH ×3 (09:30→20:33)
[2017-08-19] MEDS: IBUPROFEN 600 MG TABLET PO PRN ×2 (09:54→18:20)
--- NOTE | 2017-08-19 09:55 | NUR ---
PRN 600mg Ibuprofen given for head ache/stuffiness, pain level 2/10
--- NOTE | 2017-08-19 10:50 | NUR ---
PRN IBUPROFEN EFFECTIVE, PAIN LESS AT 1/10
[2017-08-19] MEDS ORDERED: GUAIFENESIN LA 600 MG TABLET.SA PO PRN (11:30)
[2017-08-19 12:00] VITALS: BP 132/81
[2017-08-19] MEDS ORDERED: OSELTAMIVIR PHOSPHATE 75 MG CAPSULE PO ONE (12:00)
[2017-08-19] MEDS: FLUTICASONE PROP NASAL SPRAY 16 GM BOTTLE NS SCH (12:11)
--- NOTE | 2017-08-19 13:05 | NUR ---
PRN reassess Mucinex somewhat effective, patient claims head still feels slightly congested
--- NOTE | 2017-08-19 13:45 | NUR ---
PRN 600mg Mucinex given for nasal congestion, will monitor Addendum: 08/19/17 at 1349 by BRIANA DHILLON RN Mucinex 600mg given to Patient at 1208
[2017-08-19] MEDS ORDERED: HYDR-3895 PO (14:25)
[2017-08-19] MEDS ORDERED: GUAI600T53 PO (14:25)
[2017-08-19] MEDS ORDERED: DICY20TA28 PO (14:25)
[2017-08-19] MEDS ORDERED: OSEL75CA PO (14:25)
[2017-08-19] MEDS ORDERED: IBUP-1955 PO (14:25)
[2017-08-19] MEDS ORDERED: METH-406 PO (14:25)
[2017-08-19] MEDS ORDERED: CLON0.1T14 PO (14:25)
[2017-08-19] MEDS ORDERED: GABA-536 PO (14:25)
[2017-08-19 16:00] VITALS: BP 141/79
[2017-08-19] MEDS ORDERED: HYDROXYZINE PAMOATE 25 MG CAPSULE PO PRN (18:00)
[2017-08-19] MEDS ORDERED: CLONIDINE HCL 0.2 MG TABLET PO ONE (18:00)
--- NOTE | 2017-08-19 18:25 | NUR ---
PRN VISTERAL 50MG AND IBUPROFEN 600MG GIVEN PRN MEDS, WILL CONTINUE TO MONITOR
--- NOTE | 2017-08-19 18:29 | NUR ---
END OF SHIFT PT HAS COMPLETED SUBUTEX/ PHENO TAPER. LAST COWS 6 CIWA 4. PT HAS BEEN ON CONTACT AND DROPLET ISOLATION WHICH IS STILL CURRENTLY IN PLACE DUE TO POSSIBLE INFLUENZA.ID CAME AND ASSESSED PT THIS AM. PT BECAME ANXIOUS, IRRITATED AND AGITATED ABOUT NOT BEING ABLE TO INTERACT WITH PEERS AND SMOKE CIGARETTES. HE THREATENED TO LEAVE AMA. MD INTERVENED AND PT AGREED TO STAY AND IS SCHEDULED FOR DISCHARGE IN AM TOMORROW. PRN MOTRIN GIVEN X 2 FOR H/A AND EFFECTIVE. PRN CLONIDINE AND PRN VISTARIL GIVEN FOR ANXIETY AND EFFECTIVE. WILL PASS SHIFT REPORT TO [facility] NIGHT NURSE.
--- NOTE | 2017-08-19 18:29 | NUR ---
START OF SHIFT NOTE: Patient is a 26 year old female presented in [facility] for Benzodiazepines, Opioid, Methamphetamines, and Marijuana dependence. Patient completed 5 Day Subutex and Modified Phenobarbital Taper with tolerated well without ASE. Patient remains compliant with medications and diet regime. Patient reports NKA. Patient is on Regular diet, Full Code, Fall and Seizures Precautions. Patient is on Droplet Precautions r/t influenza. 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 Patient is alert and oriented x4 with stable gait. COWS 5, CIWA 5. Patient c/o anxiety, agitation, nervousness, nasal stuff, restlessness, sweating, body aches and tremors that can be felt. VSWNL. Respirations are unlabored and even. Lungs Sounds are clear throughout. Patient denies cough, SOB and chest pain. Heart rate is regular. Abdomen is soft and non-tender. Bowel Sounds are active in all four quadrants. Skin is intact, warm and dry to touch. Encouraged fluids as tolerated. Patient scheduled for discharging tomorrow, on 08/20/2017. Safety measures in place: Call light within reach, bed is locked and lowest positions, padded bed rails up x2. Patient endorsed by day shift nurse. Report received. Will continue to monitor closely. Addendum: 08/20/17 at 0105 by BLANCA MEADOWS RN Patient is a 26 year old male presented in [facility] for Benzodiazepines, Opioid, Methamphetamines, and Marijuana dependence.
[2017-08-19 20:00] VITALS: BP 115/70
[2017-08-19] MEDS: QUETIAPINE FUMARATE 25 MG TABLET PO PRN (21:06)
--- NOTE | 2017-08-19 21:06 | NUR ---
PRN SEROQUEL 150 MG 6 TAB PO ADMINISTRATION Patient c/o insomnia. PRN Seroquel 150 mg 6 tab. PO administrated with full glass of water as ordered. Patient tolerated well. All needs met. Safety measures on place. Call light within reach, bed in lowest position and locked, padded rails up bilaterally rails up bilaterally. Will continue to monitor closely.
--- NOTE | 2017-08-19 22:06 | NUR ---
RE-ASSESSMENT Patient is sleeping. Respirations even and unlabored. RR 16. PRN Seroquel 150 mg 6 tab. PO administrated for insomnia @2105 was effective. All needs met. Safety measures on place. Call light within reach, bed in lowest position and locked, bed rails up bilaterally. Will continue to monitor closely.
--- NOTE | 2017-08-20 | NUR ---
VS REFUSED AND COWS/CIWA DEFERRED Patient refused to be woken up for 0000 VS. COWS/CIWA deferred d/t patient sleeping to assess while patient is awake. Safety measures on place by hospital policy: Call light within reach, bed in lowest position and locked, side rails up x2. Will continue to monitor closely.
[2017-08-20 04:00] VITALS: BP 115/60
--- NOTE | 2017-08-20 06:47 | NUR ---
END OF SHIFT NOTE: Patient is a 26 year old male presented in [facility] for Benzodiazepines, Opioid, Methamphetamines, and Marijuana dependence. Patient completed 5 Day Subutex and Modified Phenobarbital Taper with tolerated well without ASE. Patient remains compliant with medications and diet regime. Patient reports NKA. Patient is on Regular diet, Full Code, Fall and Seizures Precautions. Patient is on Droplet Precautions r/t influenza. 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 Last COWS 4, CIWA 4 @0400. Patient presented during manager shift with anxiety, agitation, nervousness, nasal stuff, restlessness, tremors that can be felt, and barely sweating. Patient denies SI/HI. Last VS @0400: T: 98.1, HR:78, RR: 17, RA O2SAT 95%, BP: 115/60, pain level: "0/10". Respiration unlabored and even. Patient denies cough, SOB and chest pain. Skin is intact, warm and dry to touch. Encouraged fluids intake as tolerated. PRN Seroquel 150 mg 6 tab PO administrated for insomnia @2106 was effective. Patient slept 8 hours, intake 296 ml, voided x1. Patient scheduled for discharging today, 08/20/2017. All needs met. Safety measures on place. Call light within reach, bed in lowest position and locked, bed rails up bilaterally. Patient endorsed to day shift nurse. Report given.
--- NOTE | 2017-08-20 07:30 | NUR ---
START OF SHIFT Rcvd endorsement form ongoing nurse, client is in room, he is a/o x 4, he presents with anxious mood, flat affect,. He stated "I'm ready to continue with my treatment." Client is schedule for discharge this am to [facility]. R eye with clear sclera. Client is a 26 year old male admitted for benzodiazepine and opioid withdrawal. He completed 5 day Ativan and 5 day Subutex taper, tolerated well. Last CIWA / 4 @ 0400. PRN Seroquel 150mg PO for inability to sleep, he slept 8 hrs. NKA. FULL CODE. Regular diet. On droplet isolation. On seizure precautions. . Will continue to monitor closely.
[2017-08-20 08:34] VITALS: BP 116/72
[2017-08-20] MEDS: FLUTICASONE PROP NASAL SPRAY 16 GM BOTTLE NS SCH (09:18)
[2017-08-20 09:19] VITALS: BP 116/72
[2017-08-20] MEDS: CLONIDINE HCL 0.1 MG TABLET PO SCH (09:19)
[2017-08-20] MEDS: OSELTAMIVIR PHOSPHATE 75 MG CAPSULE PO SCH (09:19)
[2017-08-20] MEDS: GABAPENTIN 400 MG CAPSULE PO SCH (09:19)
--- NOTE | 2017-08-20 09:50 | NUR ---
Discharge note Client was admitted for benzodiazepine and opiate withdrawal. Client has a recent CIWA 2/COWS 2. Client VS are WNL.Client LBM was 08/20/17. Client denies any SI/HI. Client verbalized his understanding of the discharge instructions. Client has no complaints at this time. Client discharge instructions and all belongings returned to client. All needs addressed at this time. Client ID band removed, client ambulated off of unit, client left facility via [facility] for [facility].
== END 2017-08-20 09:50 | disposition other institution (70) | DRG 895 ==
LOC: SRC 08-13 11:33
PROVIDERS: ADMIT Internal Medicine; ATTEND Internal Medicine
PROC: HZ2ZZZZ Detoxification Services for Substance Abuse Treatment (ICD-10-PCS; principal; 2017-08-13)
PROC: HZ41ZZZ Group Counseling for Substance Abuse Treatment, Behavioral (ICD-10-PCS; 2017-08-14)
PROC: HZ31ZZZ Individual Counseling for Substance Abuse Treatment, Behavioral (ICD-10-PCS; 2017-08-16)
DX: F11.23 Opioid dependence with withdrawal (principal); I15.9 Secondary hypertension, unspecified; G62.9 Polyneuropathy, unspecified; F17.210 Nicotine dependence, cigarettes, uncomplicated; J11.1 Influenza due to unidentified influenza virus with other respiratory manifestations; T22.3 Burn of third degree of shoulder and upper limb, except wrist and hand; V99.XXXS Unspecified transport accident, sequela; Z81.1 Family history of alcohol abuse and dependence; F13.230 Sedative, hypnotic or anxiolytic dependence with withdrawal, uncomplicated; F43.10 Post-traumatic stress disorder, unspecified; G47.00 Insomnia, unspecified; Z59.1 Inadequate housing; Z81.8 Family history of other mental and behavioral disorders; S00.11XA Contusion of right eyelid and periocular area, initial encounter; Y04.0XXA Assault by unarmed brawl or fight, initial encounter; Y92.89 Other specified places as the place of occurrence of the external cause; F15.10 Other stimulant abuse, uncomplicated
CPT/HCPCS: 36415; 70030-TC; 71010; 80307; 80346; 80349; 80361; 83735; 85025; 86403; 86580; 86592; 86705; 86803; 87040; 87070; 87340; 87400; 87806; A4663; G0480; J3535; J8499

== ENCOUNTER 2017-09-10 10:45 | Inpatient (IN) | payer BC, OTHER ==
[~2017-09-10] VITALS: Ht 172.7 cm; Wt 122.5 kg
[~2017-09-10 10:45] MED LIST changes: -CLON0.1T PO; -GABA-534 PO; +GABA-536 PO; +GUAI600T53 PO; -ONDA4TAB10 PO; +OSEL75CA PO
[2017-09-10] MEDS ORDERED: ONDANSETRON 4 MG/2 ML VIAL IM PRN (22:30)
[2017-09-10] MEDS ORDERED: IBUPROFEN 600 MG TABLET PO PRN (22:30)
[2017-09-10] MEDS ORDERED: diphenhydrAMINE 50 MG CAPSULE PO PRN (22:30)
[2017-09-10] MEDS ORDERED: LORAZEPAM 1 MG TABLET PO PRN ×2 (22:30)
[2017-09-10] MEDS ORDERED: MAG HYDROX/AL HYDROX/SIMETH 30 ML LIQUID UDC PO PRN (22:30)
[2017-09-10] MEDS ORDERED: MAGNESIUM HYDROXIDE 30 ML LIQUID UDC PO PRN (22:30)
[2017-09-10] MEDS ORDERED: ACETAMINOPHEN 325 MG TABLET PO PRN (22:30)
[2017-09-10] MEDS ORDERED: DICYCLOMINE HCL 20 MG TABLET PO PRN (22:30)
[2017-09-10] MEDS ORDERED: MIRALAX 17 GM POWD.PACK PO PRN (22:30)
[2017-09-10] MEDS ORDERED: LOPERAMIDE HCL 2 MG CAPSULE PO PRN ×2 (22:30)
[2017-09-10] MEDS ORDERED: LORAZEPAM 2 MG/1 ML VIAL IM PRN (22:30)
[2017-09-10 23:24] LABS: *AMPHETAMINE, URINE POSITIVE (NEGATIVE); *BARBITURATE, URINE NEGATIVE (NEGATIVE); *CANNABINOID, URINE POSITIVE (NEGATIVE); *COCCAINE, URINE NEGATIVE (NEGATIVE); *OPIATE, URINE POSITIVE (NEGATIVE); *PHENCYCLIDINE SCREEN,URINE NEGATIVE (NEGATIVE)
[2017-09-10 23:30] LABS: BASOPHILS # (AUTO) 0.1 K/uL (0.0-8.0); BASOPHILS % (AUTO) 0.6 % (0.0-2.0); EOSINOPHILS % (AUTO) 0.3 % (0.0-7.0); HEMATOCRIT 37.5 % (36.7-47.1); HEMOGLOBIN 13.1 g/dL (12.5-16.3); LYMPHOCYTES # (AUTO) 1.7 K/uL (20.0-40.0); LYMPHOCYTES % (AUTO) 17.2 % (20.5-51.5); MEAN CORPUSCULAR HEMOGLOBIN 30.1 uug (23.8-33.4); MEAN CORPUSCULAR HGB CONC 35 g/dL (32.5-36.3); MEAN CORPUSCULAR VOLUME 85.7 fL (73.0-96.2); MONOCYTES % (AUTO) 10.1 % (0.0-11.0); NEUTROPHILS # (AUTO) 7.2 K/uL (1.8-8.9); NEUTROPHILS % (AUTO) 71.8 % (38.5-71.5); PLATELET COUNT (AUTO) 198 K/uL (152-348); RED BLOOD CELL COUNT(AUTO) 4.37 MIL/uL (4.06-5.63); WHITE BLOOD COUNT (AUTO) 10.1 K/uL (3.6-10.2)
[2017-09-10] MEDS ORDERED: LORAZEPAM 1 MG TABLET PO ONE (23:30)
[2017-09-10] MEDS ORDERED: GABA600T2 PO (23:32)
[2017-09-10] MEDS ORDERED: QUET150T PO (23:32)
[2017-09-10] MEDS: METHOCARBAMOL 750 MG TABLET PO PRN (23:34)
[2017-09-10] MEDS: CLONIDINE HCL 0.1 MG TABLET PO PRN (23:34)
[2017-09-10 23:40] LABS: ALANINE AMINOTRANSFERASE 72 U/L (16-63); ALKALINE PHOSPHATASE 81 U/L (50-136); ASPARTATE AMINOTRANSFERASE 22 U/L (15-37); BILIRUBIN,TOTAL 0.4 mg/dL (0.2-1.0); CARBON DIOXIDE 23 mmol/L (21-32); CHLORIDE 105 mmol/L (98-107); CREATININE 1.2 mg/dL (0.6-1.3); GLUCOSE 121 mg/dL (74-106); POTASSIUM 3.3 mmol/L (3.5-5.1); TOTAL PROTEIN, SERUM 7.5 g/dL (6.4-8.2); UREA NITROGEN, BLOOD 19 mg/dL (7-18)
[2017-09-10] MEDS ORDERED: METHOCARBAMOL 750 MG TABLET ONE (23:49)
[2017-09-10] MEDS ORDERED: LORAZEPAM 1 MG TABLET ONE (23:49)
[2017-09-10] MEDS ORDERED: CLONIDINE HCL 0.1 MG TABLET ONE (23:49)
[2017-09-10] MEDS ORDERED: DICYCLOMINE HCL 20 MG TABLET ONE (23:50)
[2017-09-10 23:54] LABS: ETHANOL < 3 MG/DL (0-0)
[2017-09-11] VITALS: BP 127/82
[2017-09-11] MEDS ORDERED: POTASSIUM CHLORIDE 20 MEQ TAB.PRT.SR PO ONE (00:45)
[2017-09-11] MEDS: BUPRENORPHINE HCL 2 MG TAB.SUBL SL PRN ×3 (00:46→22:17)
[2017-09-11] MEDS ORDERED: BUPRENORPHINE HCL 2 MG TAB.SUBL SL ONE (00:57)
[2017-09-11 08:00] VITALS: BP 112/67
[2017-09-11] MEDS ORDERED: GABAPENTIN 300 MG CAPSULE PO SCH (09:00)
[2017-09-11] MEDS ORDERED: TUBERCULIN,PURIF.PROT.DERIV. 5 TU/0.1 ML TEST ID ONE (09:00)
[2017-09-11] MEDS: LORAZEPAM 1 MG TABLET PO SCH ×3 (12:02→20:07)
[2017-09-11] MEDS: BUPRENORPHINE HCL 2 MG TAB.SUBL SL SCH ×3 (12:02→20:09)
[2017-09-11 12:15] VITALS: BP 120/62
[2017-09-11] MEDS ORDERED: NICOTINE POLACRILEX 4 MG GUM-PK OF TEN BC PRN (13:45)
[2017-09-11] MEDS ORDERED: NICOTINE 14 MG/24HR PATCH TD PRN (13:45)
[2017-09-11] MEDS: METHOCARBAMOL 750 MG TABLET PO PRN ×2 (14:05→22:07)
[2017-09-11] MEDS: GABAPENTIN 400 MG CAPSULE PO SCH ×2 (14:05→20:07)
[2017-09-11 16:00] VITALS: BP 116/62
[2017-09-11 20:00] VITALS: BP 116/75
[2017-09-11] MEDS ORDERED: QUETIAPINE FUMARATE 100 MG TABLET PO SCH (21:00)
[2017-09-11 22:00] VITALS: BP 132/101
[2017-09-11] MEDS: CLONIDINE HCL 0.1 MG TABLET PO PRN (22:06)
[2017-09-11] MEDS ORDERED: HYDROXYZINE PAMOATE 25 MG CAPSULE ONE (22:17)
[2017-09-12] VITALS: BP 120/76
[2017-09-12 04:00] VITALS: BP 110/72
[2017-09-12 08:00] VITALS: BP 121/68
[2017-09-12] MEDS: GABAPENTIN 400 MG CAPSULE PO SCH ×3 (09:01→20:45)
[2017-09-12] MEDS: LORAZEPAM 1 MG TABLET PO SCH ×3 (09:02→20:45)
[2017-09-12] MEDS: BUPRENORPHINE HCL 2 MG TAB.SUBL SL SCH ×3 (09:02→20:46)
[2017-09-12] MEDS ORDERED: KETOROLAC TROMETHAMINE 30 MG INJ IM PRN (10:45)
[2017-09-12 12:00] VITALS: BP 107/70
[2017-09-12 14:07] LABS: HEPATITIS B SURFACE AG Negative (Negative)
[2017-09-12] MEDS: DICYCLOMINE HCL 20 MG TABLET PO SCH ×2 (14:19→20:45)
[2017-09-12] MEDS: BACLOFEN 10 MG TABLET PO SCH ×2 (14:19→20:45)
[2017-09-12 16:30] VITALS: BP 126/71
[2017-09-12] MEDS: METHOCARBAMOL 750 MG TABLET PO PRN (16:37)
[2017-09-12] MEDS: CLONIDINE HCL 0.1 MG TABLET PO PRN (16:37)
[2017-09-12] MEDS: HYDROXYZINE PAMOATE 25 MG CAPSULE PO PRN (16:37)
[2017-09-12] MEDS ORDERED: BUPRENORPHINE HCL 2 MG TAB.SUBL SL ONE ×3 (16:45→22:51)
[2017-09-12] MEDS ORDERED: LORAZEPAM 1 MG TABLET PO ONE ×2 (16:45→22:15)
[2017-09-12 20:00] VITALS: BP 133/85
[2017-09-12] MEDS: CLONIDINE HCL 0.1 MG TABLET PO SCH (20:45)
[2017-09-12] MEDS: QUETIAPINE FUMARATE 100 MG TABLET PO SCH (20:46)
[2017-09-12] MEDS: ONDANSETRON ODT 4 MG TAB.RAPDIS SL PRN (22:20)
[2017-09-12] MEDS ORDERED: LORAZEPAM 1 MG TABLET ONE (22:33)
[2017-09-12] MEDS ORDERED: CLONIDINE HCL 0.2 MG TABLET PO ONE (22:45)
[2017-09-12] MEDS ORDERED: BUPRENORPHINE HCL 2 MG TAB.SUBL SL PRN (22:45)
[2017-09-12] MEDS ORDERED: LORAZEPAM 1 MG TABLET PO PRN (22:45)
[2017-09-12] MEDS ORDERED: HYDROXYZINE PAMOATE 25 MG CAPSULE PO ONE (22:45)
[2017-09-12] MEDS ORDERED: HYDROXYZINE PAMOATE 25 MG CAPSULE ONE (22:57)
[2017-09-12] MEDS ORDERED: CLONIDINE HCL 0.2 MG TABLET ONE (22:57)
[2017-09-13] VITALS: BP 126/90
[2017-09-13 04:00] VITALS: BP 118/76
[2017-09-13 08:00] VITALS: BP 105/65
[2017-09-13] MEDS: CLONIDINE HCL 0.1 MG TABLET PO SCH ×2 (08:17→14:09)
[2017-09-13] MEDS: BACLOFEN 10 MG TABLET PO SCH (08:18)
[2017-09-13] MEDS: GABAPENTIN 400 MG CAPSULE PO SCH (08:18)
[2017-09-13] MEDS: HYDROXYZINE PAMOATE 25 MG CAPSULE PO PRN ×2 (08:19→17:40)
[2017-09-13] MEDS: DICYCLOMINE HCL 20 MG TABLET PO SCH ×3 (08:19→21:03)
[2017-09-13] MEDS: LORAZEPAM 1 MG TABLET PO SCH ×4 (08:19→21:04)
[2017-09-13] MEDS ORDERED: BUPRENORPHINE HCL 2 MG TAB.SUBL SL SCH ×2 (09:00→15:00)
[2017-09-13] MEDS ORDERED: BACLOFEN 10 MG TABLET PO ONE (12:00)
[2017-09-13] MEDS ORDERED: NAPROXEN 500 MG TABLET PO ONE (12:00)
[2017-09-13] MEDS: BUPRENORPHINE HCL 2 MG TAB.SUBL SL SCH ×3 (12:10→21:04)
[2017-09-13 12:21] VITALS: BP 140/75
[2017-09-13] MEDS: BACLOFEN 20 MG TABLET PO SCH ×2 (14:09→21:03)
[2017-09-13] MEDS: GABAPENTIN 300 MG CAPSULE PO SCH ×2 (14:09→21:02)
[2017-09-13 16:00] VITALS: BP 120/76
[2017-09-13] MEDS: METHOCARBAMOL 750 MG TABLET PO PRN (17:40)
[2017-09-13 20:00] VITALS: BP 123/84
[2017-09-13] MEDS: CLONIDINE HCL 0.2 MG TABLET PO SCH (21:03)
[2017-09-13] MEDS: ONDANSETRON ODT 4 MG TAB.RAPDIS SL PRN (21:03)
[2017-09-13] MEDS: QUETIAPINE FUMARATE 100 MG TABLET PO SCH (21:12)
[2017-09-13] MEDS: NAPROXEN 500 MG TABLET PO SCH (21:50)
[2017-09-14] VITALS: BP 118/72
[2017-09-14 08:08] VITALS: BP 121/78
[2017-09-14] MEDS: NAPROXEN 500 MG TABLET PO SCH ×2 (08:30→21:38)
[2017-09-14] MEDS: BACLOFEN 20 MG TABLET PO SCH ×3 (08:30→21:39)
[2017-09-14] MEDS: FAMOTIDINE 20 MG TABLET PO SCH (08:30)
[2017-09-14] MEDS: DICYCLOMINE HCL 20 MG TABLET PO SCH ×3 (08:30→21:38)
[2017-09-14] MEDS: CLONIDINE HCL 0.1 MG TABLET PO SCH ×2 (08:31→15:58)
[2017-09-14] MEDS: GABAPENTIN 300 MG CAPSULE PO SCH ×3 (08:31→21:39)
[2017-09-14] MEDS: BUPRENORPHINE HCL 2 MG TAB.SUBL SL SCH ×3 (08:32→21:39)
[2017-09-14] MEDS ORDERED: LORAZEPAM 1 MG TABLET PO SCH ×3 (09:00→21:00)
[2017-09-14 12:00] VITALS: BP 108/62
[2017-09-14] MEDS ORDERED: ASPIRIN/ACETAMINOPHEN/CAFFEINE TABLET PO PRN (12:00)
[2017-09-14 16:04] VITALS: BP 115/74
[2017-09-14 20:00] VITALS: BP_SYST 117; BP_DIAS 64; BP_DIAS 71
[2017-09-14] MEDS: CLONIDINE HCL 0.2 MG TABLET PO SCH (21:00)
[2017-09-14] MEDS: QUETIAPINE FUMARATE 100 MG TABLET PO SCH (21:38)
[2017-09-14] MEDS ORDERED: IPRATROPIUM BROMIDE 0.5 MG/2.5 ML NEBU NEB PRN (22:00)
[2017-09-14] MEDS ORDERED: ALBUTEROL SULFATE 2.5 MG/ 0.5 ML NEBU NEB PRN (22:00)
[2017-09-14] MEDS: HYDROXYZINE PAMOATE 25 MG CAPSULE PO PRN (23:57)
[2017-09-15] VITALS: BP 127/74
[2017-09-15 09:00] VITALS: BP 110/75
[2017-09-15] MEDS ORDERED: BUPRENORPHINE HCL 2 MG TAB.SUBL SL SCH (09:00)
[2017-09-15] MEDS ORDERED: LORAZEPAM 1 MG TABLET PO SCH (09:00)
[2017-09-15] MEDS: GABAPENTIN 300 MG CAPSULE PO SCH ×3 (09:30→20:48)
[2017-09-15] MEDS: BACLOFEN 20 MG TABLET PO SCH ×3 (09:30→20:48)
[2017-09-15] MEDS: DICYCLOMINE HCL 20 MG TABLET PO SCH ×3 (09:30→20:48)
[2017-09-15] MEDS: CLONIDINE HCL 0.1 MG TABLET PO SCH ×2 (09:31→15:53)
[2017-09-15] MEDS: FAMOTIDINE 20 MG TABLET PO SCH (09:31)
[2017-09-15] MEDS: NAPROXEN 500 MG TABLET PO SCH ×2 (09:31→20:48)
[2017-09-15] MEDS ORDERED: BENZOCAINE/MENTH/CETYLPYRD LOZENGE MM PRN (12:30)
[2017-09-15] MEDS: BUPRENORPHINE HCL 2 MG TAB.SUBL SL SCH ×2 (13:17→20:49)
[2017-09-15 14:54] VITALS: BP 131/84
[2017-09-15] MEDS: LORAZEPAM 1 MG TABLET PO SCH ×2 (15:54→20:48)
[2017-09-15 17:45] VITALS: BP 100/60
[2017-09-15 20:00] VITALS: BP 117/78
[2017-09-15] MEDS: CLONIDINE HCL 0.2 MG TABLET PO SCH (20:49)
[2017-09-15] MEDS: QUETIAPINE FUMARATE 100 MG TABLET PO SCH (20:50)
[2017-09-16] VITALS: BP 106/59
[2017-09-16 04:00] VITALS: BP 106/55
[2017-09-16 08:00] VITALS: BP 102/62
[2017-09-16] MEDS: BUPRENORPHINE HCL 2 MG TAB.SUBL SL SCH ×3 (08:41→22:59)
[2017-09-16] MEDS: LORAZEPAM 1 MG TABLET PO SCH ×2 (08:42→22:59)
[2017-09-16] MEDS: CLONIDINE HCL 0.1 MG TABLET PO SCH ×3 (08:42→22:58)
[2017-09-16] MEDS: NAPROXEN 500 MG TABLET PO SCH ×2 (08:42→22:57)
[2017-09-16] MEDS: BACLOFEN 20 MG TABLET PO SCH ×3 (08:42→22:58)
[2017-09-16] MEDS: GABAPENTIN 300 MG CAPSULE PO SCH ×3 (08:42→22:57)
[2017-09-16] MEDS: DICYCLOMINE HCL 20 MG TABLET PO SCH ×3 (08:43→21:00)
[2017-09-16] MEDS: FAMOTIDINE 20 MG TABLET PO SCH (08:43)
[2017-09-16] MEDS ORDERED: BUPRENORPHINE HCL 2 MG TAB.SUBL SL SCH (09:00)
[2017-09-16] MEDS ORDERED: LORAZEPAM 1 MG TABLET PO SCH (09:00)
[2017-09-16 12:00] VITALS: BP 113/62
[2017-09-16] MEDS ORDERED: CHLORHEXIDINE GLUCONATE 15 ML MOUTHWASH MM PRN (15:30)
[2017-09-16 16:00] VITALS: BP 99/50
[2017-09-16 20:11] VITALS: BP 128/74
[2017-09-16] MEDS: QUETIAPINE FUMARATE 100 MG TABLET PO SCH (21:00)
[2017-09-17 00:18] VITALS: BP 138/81
[2017-09-17 04:33] VITALS: BP 134/77
[2017-09-17 08:00] VITALS: BP 124/60
[2017-09-17] MEDS: FAMOTIDINE 20 MG TABLET PO SCH (08:32)
[2017-09-17] MEDS: BACLOFEN 20 MG TABLET PO SCH ×3 (08:32→21:59)
[2017-09-17] MEDS: GABAPENTIN 300 MG CAPSULE PO SCH ×3 (08:33→21:58)
[2017-09-17] MEDS: CLONIDINE HCL 0.1 MG TABLET PO SCH ×3 (08:33→21:59)
[2017-09-17] MEDS: DICYCLOMINE HCL 20 MG TABLET PO SCH ×3 (08:33→21:58)
[2017-09-17] MEDS: NAPROXEN 500 MG TABLET PO SCH ×2 (08:33→21:59)
[2017-09-17] MEDS ORDERED: BUPRENORPHINE HCL 2 MG TAB.SUBL SL SCH (09:00)
[2017-09-17] MEDS ORDERED: LORAZEPAM 1 MG TABLET PO SCH (09:00)
[2017-09-17 12:15] VITALS: BP 134/88
[2017-09-17] MEDS: CLONIDINE HCL 0.1 MG TABLET PO PRN (12:53)
[2017-09-17] MEDS: HYDROXYZINE PAMOATE 25 MG CAPSULE PO PRN (12:54)
[2017-09-17] MEDS ORDERED: DIPH50CA37 PO (14:54)
[2017-09-17] MEDS ORDERED: FAMO20TA8 PO (14:54)
[2017-09-17] MEDS ORDERED: HYDR-3895 PO (14:54)
[2017-09-17] MEDS ORDERED: BACL20TA PO (14:54)
[2017-09-17] MEDS ORDERED: NAPR500T4 PO (14:54)
[2017-09-17] MEDS ORDERED: DICY20TA28 PO (14:54)
[2017-09-17] MEDS ORDERED: GABA-534 PO (14:54)
[2017-09-17] MEDS ORDERED: CLON0.1T14 PO (14:54)
[2017-09-17 16:00] VITALS: BP 139/85
[2017-09-17 20:18] VITALS: BP 134/82
[2017-09-17] MEDS: QUETIAPINE FUMARATE 100 MG TABLET PO SCH (21:59)
[2017-09-18 00:21] VITALS: BP 128/72
[2017-09-18 04:18] VITALS: BP 133/78
[2017-09-18 08:04] VITALS: BP 100/61
[2017-09-18 09:00] VITALS: BP 100/61
[2017-09-18] MEDS: CLONIDINE HCL 0.1 MG TABLET PO SCH (09:00)
[2017-09-18] MEDS: BACLOFEN 20 MG TABLET PO SCH (09:22)
[2017-09-18] MEDS: GABAPENTIN 300 MG CAPSULE PO SCH (09:22)
[2017-09-18] MEDS: NAPROXEN 500 MG TABLET PO SCH (09:22)
[2017-09-18] MEDS: DICYCLOMINE HCL 20 MG TABLET PO SCH (09:22)
[2017-09-18] MEDS: FAMOTIDINE 20 MG TABLET PO SCH (09:22)
== END 2017-09-18 09:35 | disposition other institution (70) | DRG 895 ==
LOC: SRC 22:14
PROVIDERS: ADMIT Internal Medicine; ATTEND Internal Medicine
PROC: HZ2ZZZZ Detoxification Services for Substance Abuse Treatment (ICD-10-PCS; principal; 2017-09-10)
PROC: HZ41ZZZ Group Counseling for Substance Abuse Treatment, Behavioral (ICD-10-PCS; 2017-09-11)
DX: F13.232 Sedative, hypnotic or anxiolytic dependence with withdrawal with perceptual disturbance (principal); G47.36 Sleep related hypoventilation in conditions classified elsewhere; I15.9 Secondary hypertension, unspecified; G62.9 Polyneuropathy, unspecified; F11.23 Opioid dependence with withdrawal; F41.1 Generalized anxiety disorder; F43.10 Post-traumatic stress disorder, unspecified; G47.00 Insomnia, unspecified; Z59.1 Inadequate housing; Z91.89 Other specified personal risk factors, not elsewhere classified; F12.20 Cannabis dependence, uncomplicated; F15.10 Other stimulant abuse, uncomplicated; E87.6 Hypokalemia; E86.0 Dehydration; X08.8XXS Exposure to other specified smoke, fire and flames, sequela; T22.35 Burn of third degree of shoulder; Z81.8 Family history of other mental and behavioral disorders; Z81.1 Family history of alcohol abuse and dependence; Z79.899 Other long term (current) drug therapy; F17.210 Nicotine dependence, cigarettes, uncomplicated; J02.8 Acute pharyngitis due to other specified organisms; B97.89 Other viral agents as the cause of diseases classified elsewhere; R06.2 Wheezing
CPT/HCPCS: 36415; 70030-TC; 80307; 80324; 80349; 80361; 83735; 85025; 86403; 86580; 86592; 86705; 86803; 87070; 87340; 87400; 87806; 93005; 94664; G0480; J1885; J3590; Q0162

== ENCOUNTER 2017-11-12 16:07 | Inpatient (IN) | payer BC, OTHER ==
[~2017-11-12] VITALS: Ht 172.7 cm; Wt 127.0 kg
[~2017-11-12 16:07] MED LIST changes: +DIPH50CA37 PO; +FAMO20TA8 PO; +GABA-534 PO; -GABA-536 PO; -IBUP-1955 PO; +NAPR-1009 PO; -OSEL75CA PO
[2017-11-12] MEDS ORDERED: diphenhydrAMINE 50 MG CAPSULE PO PRN (18:30)
[2017-11-12] MEDS ORDERED: LORAZEPAM 1 MG TABLET PO PRN (18:30)
[2017-11-12] MEDS ORDERED: MAG HYDROX/AL HYDROX/SIMETH 30 ML LIQUID UDC PO PRN (18:30)
[2017-11-12] MEDS ORDERED: LOPERAMIDE HCL 2 MG CAPSULE PO PRN ×2 (18:30)
[2017-11-12] MEDS ORDERED: ACETAMINOPHEN 325 MG TABLET PO PRN (18:30)
[2017-11-12] MEDS ORDERED: BUPRENORPHINE HCL 2 MG TAB.SUBL SL PRN (18:30)
[2017-11-12] MEDS ORDERED: ONDANSETRON 4 MG/2 ML VIAL IM PRN (18:30)
[2017-11-12] MEDS ORDERED: NICOTINE 14 MG/24HR PATCH TD PRN (18:30)
[2017-11-12] MEDS ORDERED: NICOTINE POLACRILEX 4 MG GUM-PK OF TEN BC PRN (18:30)
[2017-11-12] MEDS ORDERED: LORAZEPAM 2 MG/1 ML VIAL IM PRN (18:30)
[2017-11-12] MEDS ORDERED: MIRALAX 17 GM POWD.PACK PO PRN (18:30)
[2017-11-12] MEDS ORDERED: DOCUSATE SODIUM 250 MG CAPSULE PO PRN (18:30)
[2017-11-12] MEDS ORDERED: MAGNESIUM HYDROXIDE 30 ML LIQUID UDC PO PRN (18:30)
[2017-11-12] MEDS ORDERED: DICYCLOMINE HCL 20 MG TABLET PO PRN (18:30)
[2017-11-12 18:46] LABS: *AMPHETAMINE, URINE NEGATIVE (NEGATIVE); *BARBITURATE, URINE NEGATIVE (NEGATIVE); *CANNABINOID, URINE POSITIVE (NEGATIVE); *COCCAINE, URINE NEGATIVE (NEGATIVE); *OPIATE, URINE POSITIVE (NEGATIVE); *PHENCYCLIDINE SCREEN,URINE NEGATIVE (NEGATIVE)
[2017-11-12 18:55] LABS: BASOPHILS # (AUTO) 0.1 K/uL (0.0-8.0); BASOPHILS % (AUTO) 0.7 % (0.0-2.0); EOSINOPHILS % (AUTO) 0.2 % (0.0-7.0); HEMATOCRIT 39.9 % (36.7-47.1); HEMOGLOBIN 13.5 g/dL (12.5-16.3); LYMPHOCYTES # (AUTO) 1.8 K/uL (20.0-40.0); LYMPHOCYTES % (AUTO) 19.3 % (20.5-51.5); MEAN CORPUSCULAR HEMOGLOBIN 29.2 uug (23.8-33.4); MEAN CORPUSCULAR HGB CONC 34 g/dL (32.5-36.3); MEAN CORPUSCULAR VOLUME 85.9 fL (73.0-96.2); MONOCYTES # (AUTO) 0.7 K/uL (2.0-10.0); MONOCYTES % (AUTO) 7.2 % (0.0-11.0); NEUTROPHILS # (AUTO) 6.7 K/uL (1.8-8.9); NEUTROPHILS % (AUTO) 72.6 % (38.5-71.5); PLATELET COUNT (AUTO) 192 K/uL (152-348); RED BLOOD CELL COUNT(AUTO) 4.64 MIL/uL (4.06-5.63); WHITE BLOOD COUNT (AUTO) 9.2 K/uL (3.6-10.2)
[2017-11-12 19:03] LABS: ETHANOL < 3 MG/DL (0-0)
[2017-11-12 19:06] LABS: ALANINE AMINOTRANSFERASE 114 U/L (16-63); ALKALINE PHOSPHATASE 79 U/L (50-136); ASPARTATE AMINOTRANSFERASE 30 U/L (15-37); BILIRUBIN,TOTAL 0.3 mg/dL (0.2-1.0); CARBON DIOXIDE 26 mmol/L (21-32); CHLORIDE 104 mmol/L (98-107); GLUCOSE 96 mg/dL (74-106); MAGNESIUM 2.2 mg/dL (1.8-2.4); POTASSIUM 3.7 mmol/L (3.5-5.1); TOTAL PROTEIN, SERUM 7.9 g/dL (6.4-8.2); UREA NITROGEN, BLOOD 13 mg/dL (7-18)
[2017-11-12] MEDS: ONDANSETRON ODT 4 MG TAB.RAPDIS SL PRN (19:21)
[2017-11-12] MEDS: LORAZEPAM 1 MG TABLET PO SCH ×2 (19:24→21:40)
[2017-11-12] MEDS: BUPRENORPHINE HCL 2 MG TAB.SUBL SL SCH ×2 (19:24→21:41)
[2017-11-12] MEDS: IBUPROFEN 600 MG TABLET PO PRN (19:33)
[2017-11-12 20:00] VITALS: BP 148/63
[2017-11-12] MEDS: GABAPENTIN 400 MG CAPSULE PO SCH (21:05)
[2017-11-12] MEDS: LORAZEPAM 1 MG TABLET PO PRN (23:51)
[2017-11-13] VITALS: BP 114/76
[2017-11-13 04:00] VITALS: BP 121/60
[2017-11-13 08:00] VITALS: BP 110/68
[2017-11-13] MEDS: GABAPENTIN 400 MG CAPSULE PO SCH ×3 (08:20→20:50)
[2017-11-13] MEDS: LORAZEPAM 1 MG TABLET PO SCH ×4 (08:20→20:50)
[2017-11-13] MEDS: BUPRENORPHINE HCL 2 MG TAB.SUBL SL SCH ×4 (08:20→20:50)
[2017-11-13] MEDS: ONDANSETRON ODT 4 MG TAB.RAPDIS SL PRN (08:27)
[2017-11-13] MEDS: METHOCARBAMOL 750 MG TABLET PO PRN (08:27)
[2017-11-13] MEDS ORDERED: TUBERCULIN,PURIF.PROT.DERIV. 5 TU/0.1 ML TEST ID ONE (09:00)
[2017-11-13] MEDS: LORAZEPAM 1 MG TABLET PO PRN (09:44)
[2017-11-13 12:00] VITALS: BP 150/80
[2017-11-13] MEDS: IBUPROFEN 600 MG TABLET PO PRN (12:54)
[2017-11-13] MEDS: CLONIDINE HCL 0.1 MG TABLET PO PRN (12:54)
[2017-11-13 16:00] VITALS: BP 125/89
[2017-11-13 20:00] VITALS: BP 139/92
[2017-11-13] MEDS: QUETIAPINE FUMARATE 200 MG TABLET PO PRN (23:29)
[2017-11-14] VITALS: BP 120/66
[2017-11-14 04:00] VITALS: BP 115/70
[2017-11-14 08:00] VITALS: BP 160/88
[2017-11-14 08:06] LABS: HEPATITIS B SURFACE AG Negative (Negative)
[2017-11-14] MEDS: ONDANSETRON ODT 4 MG TAB.RAPDIS SL PRN (09:03)
[2017-11-14] MEDS: CLONIDINE HCL 0.1 MG TABLET PO PRN (09:04)
[2017-11-14] MEDS: GABAPENTIN 400 MG CAPSULE PO SCH ×3 (09:05→21:10)
[2017-11-14] MEDS: LORAZEPAM 1 MG TABLET PO SCH ×3 (09:05→21:10)
[2017-11-14] MEDS: BUPRENORPHINE HCL 2 MG TAB.SUBL SL SCH ×3 (09:06→21:10)
[2017-11-14 12:37] VITALS: BP 105/66
[2017-11-14] MEDS ORDERED: BUPRENORPHINE HCL 2 MG TAB.SUBL SL ONE (13:00)
[2017-11-14] MEDS: METHOCARBAMOL 750 MG TABLET PO PRN (13:08)
[2017-11-14] MEDS ORDERED: LORAZEPAM 1 MG TABLET PO PRN ×2 (13:30)
[2017-11-14] MEDS ORDERED: KETOROLAC TROMETHAMINE 30 MG INJ IM PRN (13:30)
[2017-11-14 16:00] VITALS: BP 138/81
[2017-11-14 20:00] VITALS: BP 116/69
[2017-11-14] MEDS: MUPIROCIN 2% OINT 22 GM TUBE NS SCH (21:08)
[2017-11-14] MEDS: CLONIDINE HCL 0.1 MG TABLET PO SCH (21:09)
[2017-11-14] MEDS: DICYCLOMINE HCL 20 MG TABLET PO SCH (21:09)
[2017-11-14] MEDS: BACLOFEN 10 MG TABLET PO SCH (21:10)
[2017-11-14] MEDS: QUETIAPINE FUMARATE 200 MG TABLET PO PRN (22:02)
[2017-11-15] VITALS: BP 93/57
[2017-11-15 04:00] VITALS: BP 114/63
[2017-11-15 08:00] VITALS: BP 106/62
[2017-11-15] MEDS ORDERED: BUPRENORPHINE HCL 2 MG TAB.SUBL SL SCH ×2 (09:00→15:00)
[2017-11-15] MEDS: BACLOFEN 10 MG TABLET PO SCH ×3 (09:26→21:33)
[2017-11-15] MEDS: LORAZEPAM 1 MG TABLET PO SCH ×2 (09:26→12:26)
[2017-11-15] MEDS: CLONIDINE HCL 0.1 MG TABLET PO SCH ×3 (09:26→21:33)
[2017-11-15] MEDS: DICYCLOMINE HCL 20 MG TABLET PO SCH ×3 (09:26→21:32)
[2017-11-15] MEDS: GABAPENTIN 400 MG CAPSULE PO SCH (09:26)
[2017-11-15] MEDS: MUPIROCIN 2% OINT 22 GM TUBE NS SCH ×2 (09:27→21:33)
[2017-11-15 12:00] VITALS: BP 119/75
[2017-11-15] MEDS: BUPRENORPHINE HCL 2 MG TAB.SUBL SL SCH ×3 (13:11→21:34)
[2017-11-15] MEDS: GABAPENTIN 300 MG CAPSULE PO SCH ×2 (15:10→21:32)
[2017-11-15 16:00] VITALS: BP 133/78
[2017-11-15] MEDS ORDERED: LORAZEPAM 1 MG TABLET PO SCH ×2 (17:00→21:00)
[2017-11-15 20:00] VITALS: BP 107/77
[2017-11-15] MEDS: METHOCARBAMOL 750 MG TABLET PO PRN (21:33)
[2017-11-15] MEDS: QUETIAPINE FUMARATE 200 MG TABLET PO PRN (22:34)
[2017-11-16 08:00] VITALS: BP 115/72
[2017-11-16] MEDS ORDERED: LORAZEPAM 1 MG TABLET PO SCH ×3 (09:00→21:00)
[2017-11-16] MEDS: BACLOFEN 10 MG TABLET PO SCH (09:16)
[2017-11-16] MEDS: DICYCLOMINE HCL 20 MG TABLET PO SCH ×3 (09:16→21:00)
[2017-11-16] MEDS: GABAPENTIN 300 MG CAPSULE PO SCH ×3 (09:16→22:06)
[2017-11-16] MEDS: CLONIDINE HCL 0.1 MG TABLET PO SCH ×2 (09:17→15:19)
[2017-11-16] MEDS: BUPRENORPHINE HCL 2 MG TAB.SUBL SL SCH ×3 (09:17→22:05)
[2017-11-16] MEDS: MUPIROCIN 2% OINT 22 GM TUBE NS SCH ×2 (09:18→22:05)
[2017-11-16] MEDS ORDERED: IBUPROFEN 800 MG TABLET PO PRN (11:45)
[2017-11-16 12:00] VITALS: BP 107/63
[2017-11-16] MEDS ORDERED: BUPRENORPHINE HCL 2 MG TAB.SUBL SL ONE (12:00)
[2017-11-16] MEDS: ACETAMINOPHEN 325 MG TABLET PO SCH ×2 (15:18→21:00)
[2017-11-16] MEDS: BACLOFEN 20 MG TABLET PO SCH ×2 (15:18→21:00)
[2017-11-16 16:00] VITALS: BP 112/79
[2017-11-16 20:00] VITALS: BP 120/75
[2017-11-16] MEDS: CLONIDINE HCL 0.2 MG TABLET PO SCH (22:05)
[2017-11-16] MEDS: QUETIAPINE FUMARATE 200 MG TABLET PO PRN (22:05)
[2017-11-17 08:00] VITALS: BP 112/75
[2017-11-17] MEDS ORDERED: BUPRENORPHINE HCL 2 MG TAB.SUBL SL SCH (09:00)
[2017-11-17] MEDS: CLONIDINE HCL 0.1 MG TABLET PO SCH ×2 (09:00→14:04)
[2017-11-17] MEDS ORDERED: LORAZEPAM 1 MG TABLET PO SCH (09:00)
[2017-11-17] MEDS: ACETAMINOPHEN 325 MG TABLET PO SCH ×4 (09:00→21:56)
[2017-11-17] MEDS: BACLOFEN 20 MG TABLET PO SCH ×3 (09:00→21:56)
[2017-11-17] MEDS: GABAPENTIN 300 MG CAPSULE PO SCH ×3 (09:54→21:56)
[2017-11-17] MEDS: DICYCLOMINE HCL 20 MG TABLET PO SCH ×3 (09:55→21:00)
[2017-11-17] MEDS: BUPRENORPHINE HCL 2 MG TAB.SUBL SL SCH ×3 (09:56→21:57)
[2017-11-17] MEDS: MUPIROCIN 2% OINT 22 GM TUBE NS SCH ×2 (09:56→21:58)
[2017-11-17] MEDS: LORAZEPAM 1 MG TABLET PO SCH ×3 (09:56→21:57)
[2017-11-17 12:00] VITALS: BP 118/77
[2017-11-17] MEDS: CLONIDINE HCL 0.1 MG TABLET PO PRN (12:13)
[2017-11-17] MEDS: HYDROXYZINE PAMOATE 25 MG CAPSULE PO PRN (12:13)
[2017-11-17] MEDS ORDERED: IBUP-1957 PO (15:59)
[2017-11-17] MEDS ORDERED: GABA-534 PO (15:59)
[2017-11-17] MEDS ORDERED: MUPI22OI2 NS (15:59)
[2017-11-17] MEDS ORDERED: ACET325T53 PO (15:59)
[2017-11-17] MEDS ORDERED: HYDR-3895 PO (15:59)
[2017-11-17] MEDS ORDERED: DICY20TA28 PO (15:59)
[2017-11-17] MEDS ORDERED: BACL20TA PO (15:59)
[2017-11-17] MEDS ORDERED: CLON0.1T14 PO (15:59)
[2017-11-17 16:00] VITALS: BP 101/58
[2017-11-17 20:00] VITALS: BP 133/76
[2017-11-17] MEDS: QUETIAPINE FUMARATE 200 MG TABLET PO PRN (21:56)
[2017-11-17] MEDS: CLONIDINE HCL 0.2 MG TABLET PO SCH (21:57)
[2017-11-18 08:00] VITALS: BP 126/72
[2017-11-18] MEDS: BACLOFEN 20 MG TABLET PO SCH ×3 (08:45→22:01)
[2017-11-18] MEDS: GABAPENTIN 300 MG CAPSULE PO SCH ×3 (08:45→22:01)
[2017-11-18] MEDS: DICYCLOMINE HCL 20 MG TABLET PO SCH ×3 (08:45→22:02)
[2017-11-18] MEDS: ACETAMINOPHEN 325 MG TABLET PO SCH ×3 (08:46→22:01)
[2017-11-18] MEDS: CLONIDINE HCL 0.1 MG TABLET PO SCH ×2 (08:46→14:12)
[2017-11-18] MEDS: MUPIROCIN 2% OINT 22 GM TUBE NS SCH ×2 (08:47→22:03)
[2017-11-18] MEDS ORDERED: BUPRENORPHINE HCL 2 MG TAB.SUBL SL SCH (09:00)
[2017-11-18] MEDS ORDERED: LORAZEPAM 1 MG TABLET PO SCH (09:00)
[2017-11-18 12:00] VITALS: BP 122/81
[2017-11-18 16:00] VITALS: BP 142/92
[2017-11-18] MEDS: HYDROXYZINE PAMOATE 25 MG CAPSULE PO PRN (16:34)
[2017-11-18 20:00] VITALS: BP 111/72
[2017-11-18] MEDS: QUETIAPINE FUMARATE 200 MG TABLET PO PRN (22:01)
[2017-11-18] MEDS: CLONIDINE HCL 0.2 MG TABLET PO SCH (22:02)
[2017-11-19 08:00] VITALS: BP 120/64
[2017-11-19] MEDS: MUPIROCIN 2% OINT 22 GM TUBE NS SCH (09:00)
[2017-11-19] MEDS: DICYCLOMINE HCL 20 MG TABLET PO SCH (09:53)
[2017-11-19] MEDS: GABAPENTIN 300 MG CAPSULE PO SCH (09:54)
[2017-11-19] MEDS: BACLOFEN 20 MG TABLET PO SCH (09:54)
[2017-11-19] MEDS: ACETAMINOPHEN 325 MG TABLET PO SCH (09:54)
[2017-11-19 09:55] VITALS: BP 130/89
[2017-11-19] MEDS: CLONIDINE HCL 0.1 MG TABLET PO SCH (09:55)
== END 2017-11-19 11:05 | disposition other institution (70) | DRG 895 ==
LOC: SRC 17:33
PROVIDERS: ADMIT Internal Medicine; ATTEND Internal Medicine
PROC: HZ2ZZZZ Detoxification Services for Substance Abuse Treatment (ICD-10-PCS; principal; 2017-11-12)
PROC: HZ31ZZZ Individual Counseling for Substance Abuse Treatment, Behavioral (ICD-10-PCS; 2017-11-13)
PROC: HZ41ZZZ Group Counseling for Substance Abuse Treatment, Behavioral (ICD-10-PCS; 2017-11-14)
DX: F11.23 Opioid dependence with withdrawal (principal); G62.9 Polyneuropathy, unspecified; I15.9 Secondary hypertension, unspecified; F13.232 Sedative, hypnotic or anxiolytic dependence with withdrawal with perceptual disturbance; F15.10 Other stimulant abuse, uncomplicated; F12.90 Cannabis use, unspecified, uncomplicated; Z59.1 Inadequate housing; G47.00 Insomnia, unspecified; F17.210 Nicotine dependence, cigarettes, uncomplicated; F43.10 Post-traumatic stress disorder, unspecified; Z22.322 Carrier or suspected carrier of Methicillin resistant Staphylococcus aureus; Z59.0 Homelessness; F41.9 Anxiety disorder, unspecified; Z81.8 Family history of other mental and behavioral disorders; Z81.1 Family history of alcohol abuse and dependence; Z91.89 Other specified personal risk factors, not elsewhere classified
CPT/HCPCS: 36415; 70030-TC; 80307; 80349; 80361; 83735; 85025; 86580; 86592; 86705; 86803; 87340; 87806; A4663; G0480; J2405; Q0162; Q0163